=== PATIENT | female | born 1985 | race Caucasian/White ===

== ENCOUNTER 2017-10-05 22:09 | Emergency (ER) | payer MEDICAID, SELFPAY ==
[2017-10-05 22:19] VITALS: BP 118/70; PULSE 96; RESP 18; TEMP 37; O2SAT 99; BMI 26.6
[2017-10-05 22:23] VITALS: BMI 26.6
--- NOTE | 2017-10-05 22:41 | HMH.EDURI ---
ED Disposition Clinical Impression: Bronchitis Disposition: Home, Self-Care Condition on Discharge: Good Additional Instructions: fluids and see pcp for follow up Prescriptions: Azithromycin [Zithromax 250mg tab] 250 mg PO DIRECTED #6 tab Benzonatate [Tessalon Perle 100mg Cap] 100 mg PO TID #30 cap predniSONE [Prednisone 20mg Tab] 20 mg PO DAILY #10 tab Referrals: Kam Gusman MD [Primary Care Provider] - - Critical Care Critical Care Time: No Attestation: On , the high probability of a clinically significant, sudden or life threatening deterioration of the following system(s) required my full and direct attention, intervention and personal management. The time I documented below is in addition to time spent performing reported procedures but includes the following listed in this critical care notation. Medical Decision Making - Medical Records Medical records reviewed: Yes: I reviewed the patient's medical records. Vital Signs: 10/05/17 22:19 Temperature 98.6 F Temperature Source Oral Pulse Rate [Brachial] 96 H Respiratory Rate 18 Blood Pressure [Right Arm] 118/70 Blood Pressure Mean [Right Arm] 86 Blood Pressure Source [Right Arm] Automatic Cuff Blood Pressure Position [Right Arm] Sitting 02 Sat by Pulse Oximetry 99 - Lab Data Lab results reviewed: Yes: I reviewed the patient's lab results. Lab Results 10/05/17 22:30: Influenza Type A Ag Negative, Influenza Type B Ag Negative - Agustín Inquiry Pt receiving controlled substance: No URI/Sore Throat HPI - General Chief Complaint: Upper Respiratory Infection Stated Complaint: KALYN,NAUSA,SOB Time Seen by Provider: 10/05/17 22:41 Mode of Arrival: Ambulatory Source of Information: Patient, Medical Record Limitations: No Limitations Description of Symptoms (Recalled from ER Triage Doc. 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 and uses tob but no rash Complaint: cough Onset (ago): day(s) Duration: intermittent Severity: moderate Relieving factors: OTC cold medicine Description of mucous: clear Able to tolerate fluids by mouth: Yes Associated symptoms: myalgias - Related Data Previous Rx's Medication Instructions Recorded Azithromycin [Zithromax 250mg 250 mg PO DIRECTED #6 tab 01/03/18 tab] Benzonatate [Tessalon Perle 100mg 100 mg PO TID #30 cap 10/05/17 Cap] predniSONE [Prednisone 20mg 20 mg PO DAILY #10 tab 10/05/17 Tab] Allergies Allergy/AdvReac Type Severity Reaction Status Date / Time morphine [MORPHINE] Allergy Intermediate I-HIVES Verified 10/05/17 22:34 promethazine [From PHENERGAN] Allergy Intermediate PARNOID Verified 10/05/17 22:34 [facility] History I have reviewed the patient's past medical history: Yes - *Social History Alcohol Intake: never - Psychiatric History Expresses thoughts of harming self/others: None Suicide Plan Description: No Plan - Constitutional Reports malaise, Denies fever(s) - Eyes Denies discharge - ENT Denies sore throat - Cardiovascular Denies chest pain at rest - Respiratory Reports cough, Reports wheezing - Gastrointestinal Denies abdominal pain - Musculoskeletal Reports joint pain, Denies joint swelling, Denies neck pain - Neurologic Denies seizure-like activity - Psychiatric Denies anxiety Physical Exam - General General appearance: alert, in no apparent distress - Head Head exam: normocephalic - Eye Eye exam: Present: PERRL, EOMI. Absent: scleral icterus - ENT ENT exam: Present: normal oropharynx - Neck Neck exam: Present: full ROM - Respiratory Respiratory exam: Present: normal lung sounds bilaterally. Absent: respiratory distress - Cardiovascular Cardiovascular exam: Present: regular rate - Abdominal Exam Abdominal exam: Present: soft - Extremit
== END 2017-10-06 00:01 | disposition home or self-care (01) ==
PROVIDERS: Emergency Provider Emergency Medicine; PCP Emergency Medicine
DX: J20.9 Acute bronchitis, unspecified (principal); M25.511 Pain in right shoulder; Z88.6 Allergy status to analgesic agent; Z88.8 Allergy status to other drugs, medicaments and biological substances
CPT/HCPCS: 87275; 87276; 99282

== ENCOUNTER → 2017-10-24 15:31 | Outpatient (CLI) | payer MEDICAID, SELFPAY ==
[2017-10-24 16:39] LABS: Basophils % 0.5 % (0.1-2.0); Eosinophils # 0.3 K/mm3 (0.0-0.4); Eosinophils % 3.6 % (0.1-12.0); Hematocrit 38.9 % (37.0-47.0); Lymphocytes # 2.2 K/mm3 (0.7-4.5); Lymphocytes % 30.9 K/mm3 (10-50); Mean Corpuscular HGB Conc 33.5 g/dL (31.8-35.4); Mean Corpuscular Volume 86.6 fl (81-99); Mean Platelet Volume 8.9 fl (7.4-10.4); Monocytes # 0.5 K/mm3 (0.1-1.0); Monocytes % 6.6 % (1.7-9.3); Neutrophils # 4.2 K/mm3 (1.8-7.8); Neutrophils % 58.4 % (37.0-80.0); Platelet Count 211 K/mm3 (142-424); Red Blood Count 4.49 M/mm3 (4.20-5.40); Red Cell Distribution Width 12.7 % (11.5-17.5); White Blood Count 7.2 K/mm3 (4.8-10.8)
[2017-10-27 08:48] LABS: Hepatitis B Surface Antigen Negative (Negative); Hepatitis C Antibody <0.1 s/co ratio (0.0-0.9); Rapid Plasma Reagin Ab Titer Non Reactive (NonRea<1:1); Rubella Antibodies, IgG 1.51 index (Immune >0.99)
== END ==
PROVIDERS: PCP Emergency Medicine; Visit Provider Nurse Practitioner Obstetrics & Gynecology
DX: Z34.90 Encounter for supervision of normal pregnancy, unspecified, unspecified trimester (principal)
CPT/HCPCS: 36415; 85025; 86592; 86762; 86850; 87340; 87380

== ENCOUNTER → 2017-10-31 13:01 | Outpatient (CLI) | payer MEDICAID, SELFPAY ==
--- NOTE | 2017-10-31 13:03 | US_ITS ---
US OB transvaginal Ordering Physician: Earl Monet MD Patient Age: 32 years: Female HISTORY: ITS.REASON: US OB- Dates early OB TECHNIQUE: Transvaginal pelvic ultrasound COMPARISON :None relevant FINDINGS Single viable intrauterine gestation. Early embryo with heart flicker evident Cervix long and closed. . Yolk sac identified. = 5.3 mm Embryo identified = 11 mm = 17 weeks 2 days Heart rate 146 BPM Semilunar included in demonstrating the heart flicker Average ultrasound age = 7 weeks 2 days (Gestational age = 7 weeks 2 days based on LMP 09/10/2017) LESLY based on ultrasound June 17, 2018 Left ovary 2.7 x 1.5 cm. Right ovary 2.4 x 1.5 x 2 cm.. A few small follicles of the right ovary. No dominant cyst in either ovary no fluid in cul-de-sac IMPRESSION Single viable intrauterine gestation [place]-rump length = 7 weeks 2 days IMPRESSION:
== END ==
PROVIDERS: PCP Emergency Medicine; Visit Provider Nurse Practitioner Obstetrics & Gynecology
DX: O26.841 Uterine size-date discrepancy, first trimester (principal)
CPT/HCPCS: 76830

== ENCOUNTER 2017-11-12 15:20 | Emergency (ER) | payer MEDICAID, SELFPAY ==
--- NOTE | 2017-11-12 16:22 | HMH.EDUTC ---
[facility] [place] Disposition Clinical Impression: Cellulitis of external cheek, left Qualifiers: Weeks of gestation: unspecified Qualified Code(s): Z34.90 - Encounter for supervision of normal , unspecified, unspecified trimester Disposition: Home, Self-Care Condition on Discharge: Good Prescriptions: Amoxicillin [Amoxicillin 875MG Tab] 875 mg PO Q12H #20 tab Time of Disposition: 16:36 Medical Decision Making - Medical Records Medical records reviewed: Yes: I reviewed the patient's medical records. - Agustín Inquiry Pt receiving controlled substance: No [facility] [place] HPI - General Stated complaint: Facial Swelling Time Seen by Provider: 11/12/17 16:22 Mode of Arrival: Ambulatory Source of Information: Patient Limitations: No Limitations HEENT Symptoms (Recalled from RN notes): Yes Resp Symptoms (Recalled from RN notes): No Skin Symptoms (Recalled from RN notes): No GI/ Symptoms (Recalled from RN notes): No MS Symptoms (Recalled from RN notes): No Card Symptoms (Recalled from RN notes): No Other (Recalled from RN notes): No - History of Present Illness Provider Complaint: Patient has swelling in left cheek X 2 days. Similar episode a few weeks ago. Does have dental problems - waiting on taxes to get teeth pulled - but no known abscesses. No dental pain. No fever. No nausea, vomiting or diarrhea. Onset (ago): day(s) (2) Location: head, face Relieving factors: none Exacerbating factors: none Associated symptoms: denies other symptoms - Related Data Home Medications Medication Instructions Recorded Confirmed ergocalciferol (vitamin D2) 50,000 50,000 unit PO QWEEK 10/13/17 unit capsule pyridoxine (vitamin B6) 50 mg 50 mg PO ONCE 10/24/17 capsule Previous Rx's Medication Instructions Recorded Amoxicillin [Amoxicillin 875MG Tab] 875 mg PO Q12H #20 tab 11/12/17 Allergies Allergy/AdvReac Type Severity Reaction Status Date / Time morphine [MORPHINE] Allergy Intermediate I-HIVES Verified 10/14/17 08:45 promethazine [From PHENERGAN] Allergy Intermediate PARNOID Verified 10/14/17 08:45 [facility] History I have reviewed the patient's past medical history: Yes Laterality Cases: Bilateral: Other Other Surgeries: Yes: Appendectomy, Amputation: No Fractures: No - *Social History Smoking Status: Current every day smoker Tobacco Type: cigarettes Alcohol Intake: former Alcohol Intake Frequency:: holidays/special occasions only *Family Hx:: No significant family 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 All systems reviewed & no additional complaints - Constitutional Constitutional: Denies fever(s) - Eyes Eyes: Denies blurry vision, Denies eye discharge - ENT Ears, Nose, Mouth, and Throat: Reports as per HPI, Denies dental pain, Denies facial pain, Reports sinus pain, Denies sore throat Physical Exam - General General appearance: alert, in no apparent distress - Head Head exam: atraumatic, normocephalic, normal inspection - Eye Eye exam: Present: normal appearance, PERRL, EOMI - ENT ENT exam: Present: normal exam, normal oropharynx, mucous membranes moist, TM's normal bilaterally, normal external ear exam - Expanded ENT Exam Nose exam: Present: other (swelling left maxillary sinus/cheek) - Neck Neck exam: Present: normal inspection, full ROM, trachea midline. Absent: meningismus, lymphadenopathy - Chest Chest inspection: Present: normal inspection, symmetric chest wall rise. Absent: tenderness - Respiratory Respiratory exam: Present: normal lung sounds bilaterally. Absent: respiratory distress - Cardiovascular Cardiovascular exam: Present: regular rate, normal rhythm. Absent: JVD - Abdominal Exam Abdominal exam: Present: soft, normal bowel sounds. Absent: distention, tenderness, guarding - Extremities Exam Extremities exam: Present: normal inspection, full ROM, normal capillary refill. Absent: calf tenderness - Back Ex
--- NOTE | 2017-11-12 16:27 | ED_ITS ---
[facility] [place] Disposition Clinical Impression: Cellulitis of external cheek, left Qualifiers: Weeks of gestation: unspecified Qualified Code(s): Z34.90 - Encounter for supervision of normal , unspecified, unspecified trimester Disposition: Home, Self-Care Condition on Discharge: Good Prescriptions: Amoxicillin [Amoxicillin 875MG Tab] 875 mg PO Q12H #20 tab Time of Disposition: 16:36 Medical Decision Making - Medical Records Medical records reviewed: Yes: I reviewed the patient's medical records. - Agustín Inquiry Pt receiving controlled substance: No [facility] [place] HPI - General Stated complaint: Facial Swelling Time Seen by Provider: 11/12/17 16:22 Mode of Arrival: Ambulatory Source of Information: Patient Limitations: No Limitations HEENT Symptoms (Recalled from RN notes): Yes Resp Symptoms (Recalled from RN notes): No Skin Symptoms (Recalled from RN notes): No GI/ Symptoms (Recalled from RN notes): No MS Symptoms (Recalled from RN notes): No Card Symptoms (Recalled from RN notes): No Other (Recalled from RN notes): No - History of Present Illness Provider Complaint: Patient has swelling in left cheek X 2 days. Similar episode a few weeks ago. Does have dental problems - waiting on taxes to get teeth pulled - but no known abscesses. No dental pain. No fever. No nausea, vomiting or diarrhea. Onset (ago): day(s) (2) Location: head, face Relieving factors: none Exacerbating factors: none Associated symptoms: denies other symptoms - Related Data Home Medications Medication Instructions Recorded Confirmed ergocalciferol (vitamin D2) 50,000 50,000 unit PO QWEEK 10/13/17 unit capsule pyridoxine (vitamin B6) 50 mg 50 mg PO ONCE 10/24/17 capsule Previous Rx's Medication Instructions Recorded Amoxicillin [Amoxicillin 875MG Tab] 875 mg PO Q12H #20 tab 11/12/17 Allergies Allergy/AdvReac Type Severity Reaction Status Date / Time morphine [MORPHINE] Allergy Intermediate I-HIVES Verified 10/14/17 08:45 promethazine [From PHENERGAN] Allergy Intermediate PARNOID Verified 10/14/17 08: 45 [facility] History I have reviewed the patient's past medical history: Yes Laterality Cases: Bilateral: Other Other Surgeries: Yes: Appendectomy, Amputation: No Fractures: No - *Social History Smoking Status: Current every day smoker Tobacco Type: cigarettes Alcohol Intake: former Alcohol Intake Frequency:: holidays/special occasions only *Family Hx:: No significant family 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 All systems reviewed & no additional complaints - Constitutional Constitutional: Denies fever(s) - Eyes Eyes: Denies blurry vision, Denies eye discharge - ENT Ears, Nose, Mouth, and Throat: Reports as per HPI, Denies dental pain, Denies facial pain, Reports sinus pain, Denies sore throat Physical Exam - General General appearance: alert, in no apparent distress - Head Head exam: atraumatic, normocephalic, normal inspection - Eye Eye exam: Present: normal appearance, PERRL, EOMI - ENT ENT exam: Present: normal exam, normal oropharynx, mucous membranes moist, TM's normal bilaterally, normal external ear exam - Expanded ENT Exam Nose exam: Present: other (swelling left maxillary sinus/cheek) - Neck Neck exam: Present: normal inspection, full ROM, trachea midline. Absent: men
[2017-11-12 16:37] VITALS: BP 124/73; PULSE 83; RESP 20; TEMP 36.6; O2SAT 98; BMI 26.4
[2017-11-12 17:11] VITALS: BP 124/73; PULSE 83; RESP 20; TEMP 36.6; O2SAT 98
== END 2017-11-12 17:13 | disposition home or self-care (01) ==
PROVIDERS: Emergency Provider Physician Assistant
DX: L03.211 Cellulitis of face (principal); Z34.90 Encounter for supervision of normal pregnancy, unspecified, unspecified trimester; Z88.6 Allergy status to analgesic agent; Z88.8 Allergy status to other drugs, medicaments and biological substances
CPT/HCPCS: 99202

== ENCOUNTER → 2018-01-24 13:09 | Outpatient (CLI) | payer MEDICAID, SELFPAY ==
--- NOTE | 2018-01-24 13:11 | US_ITS ---
US OB /maternal detail: INDICATION: ITS.REASON: US OB Complete ORDERING PHYSICIAN: Earl Monet MD PATIENT AGE: 32 years TECHNIQUE: ultrasound transabdominal scanning. COMPARISON: No previous relevant studies. FINDINGS: Single viable intrauterine gestation. Cephalic position at the end of the exam position. Placenta: Anterior . There is average amount fluid. The cervix appears satisfactory. Closed and measuring 4 cm in length. Complete survey performed and was unremarkable on the submitted images as in PACS. No discrete anomalies identified on survey imaging by technologist. Active fetus. Three-vessel cord with satisfactory umbilical cord insertion. 4- chamber heart noted. There is an echogenic intracardiac focus within the ventricle which is nonspecific. Unremarkable Survey of brain & ventricles. Face and neck survey unremarkable. Diaphragm and chest views unremarkable. Abdomen: Both kidneys noted and unremarkable. Stomach noted and satisfactory. Spine: Survey of the spine satisfactory with no anomalies identified nor imaged. Both arms and legs noted. Amniotic Fluid: Adequate. Maternal adnexa: No significant findings. Measurements: Average ultrasound age 19w6d. Gestational Age 19w3d. Estimated due date by ultrasound age 0906/14/2018. This is 75th percentile Estimated weight 322 grams. BPD = 19w6d OFD = 20w1d HC = 19w2d AC = 20w1d FL = 20w0d Heart Rate = 150 bpm Cerebellum = 19w2d Humerus = 20w4d HC/AC is 1.11 (1.09-1.26). CI is 78% (70-86%). FL/BPD is 70%. FL/AC is 22%. IMPRESSION: Live intrauterine gestation with an average ultrasound age of 19 weeks 6 days. heart and body motion noted. All parameters correlate. There is a nonspecific echogenic intracardiac focus. This is classified as a soft marker for a aneuplodic anomalies in patients with a high risk Otherwise unremarkable anatomy exam.
== END ==
PROVIDERS: PCP Emergency Medicine; Visit Provider Nurse Practitioner Obstetrics & Gynecology
DX: Z36.0 Encounter for antenatal screening for chromosomal anomalies (principal)
CPT/HCPCS: 76811

== ENCOUNTER 2018-04-07 16:11 | Outpatient (CLI) | payer MEDICAID, SELFPAY ==
[2018-04-07 16:20] VITALS: BP 99/62; PULSE 94; RESP 18; TEMP 36.6; O2SAT 97; BMI 27.3
[2018-04-07 16:23] VITALS: BMI 27.3
== END 2018-04-07 17:04 | disposition home or self-care (01) ==
LOC: OBOUT 16:16 → OB 16:17
PROVIDERS: PCP Obstetrics & Gynecology; Visit Provider Obstetrics & Gynecology
DX: O26.893 Other specified pregnancy related conditions, third trimester (principal); Z3A.29 29 weeks gestation of pregnancy; R10.2 Pelvic and perineal pain
CPT/HCPCS: 59025

== ENCOUNTER → 2018-04-13 19:18 | Outpatient (REF) | payer MEDICAID, SELFPAY | LOC: LAB 19:18 | PROVIDERS: Visit Provider Nurse Practitioner Obstetrics & Gynecology | DX: Z34.90 Encounter for supervision of normal pregnancy, unspecified, unspecified trimester (principal) | CPT/HCPCS: 87086; 87088; 87186 ==

== ENCOUNTER → 2018-05-10 17:05 | Outpatient (REF) | payer MEDICAID, SELFPAY | LOC: LAB 17:05 | PROVIDERS: Visit Provider Nurse Practitioner Obstetrics & Gynecology | DX: Z34.90 Encounter for supervision of normal pregnancy, unspecified, unspecified trimester (principal) | CPT/HCPCS: 87086 ==

== ENCOUNTER → 2018-05-19 12:58 | Outpatient (CLI) | payer MEDICAID, SELFPAY ==
--- NOTE | 2018-05-19 | US_ITS ---
US OB biophysical profile, US OB follow up, US SD Ratio umbilcal artery: Indication: Evaluate growth, small for gestational age ITS.REASON: US OB- BPP Growth- SGA ORDERING PHYSICIAN: Earl Monet MD PATIENT AGE: 32 years FINDINGS: Single live fetus is present in the cephalic presentation. The placenta is anterior and grade 1-2. breathing movement noted. The following parameters are obtained: Average ultrasound age is 36w2d. Estimated due date by ultrasound is 06/14/2018. Estimated weight is 2925. This is 66 percentile based on established due date of 06/17/2018. BPD: 36w0d OFD: 39w5d HC: 36w3d AC: 35w6d FL: 35w6d heart rate: 146 bpm. HC/AC: 0.98(0.93-1.11) Cephalic index: 77% (70-86%) FL/BPD: 79% (71-87% FL/AC: 21% (20-24%) Amniotic fluid index: 6 cm Qualitative AFV: 2 breathing movements: 2 Gross body movements: 2 Tone: 2 Biophysical profile score: 8/8 Doppler evaluation of the umbilical artery: SD ratio: 2.2 Resistive index: 0.5 No obvious anomalies evident. Placenta: Anterior Grade 1 - 2. Cervix: Appears closed and measures 4 cm IMPRESSION: There is a single live fetus present in cephalic presentation with an average ultrasound age of 36 weeks 2 days. Estimated weight is 2925 g which is 66 percentile based on established due date of 06/17/2018. Fetus is active with no obvious anomalies. Biophysical profile is 8 of 8. Amniotic fluid volume is low and DELFINO of 6 cm. Umbilical artery evaluation is unremarkable with an SD ratio of 2.2 and resistive index of 0.55
== END ==
PROVIDERS: PCP Emergency Medicine; Visit Provider Nurse Practitioner Obstetrics & Gynecology
DX: O36.5131 Maternal care for known or suspected placental insufficiency, third trimester, fetus 1 (principal)
CPT/HCPCS: 76816; 76819; 76820

== ENCOUNTER → 2018-05-24 18:05 | Outpatient (REF) | payer MEDICAID, SELFPAY | LOC: LAB 18:05 | PROVIDERS: Visit Provider Nurse Practitioner Obstetrics & Gynecology | DX: Z34.90 Encounter for supervision of normal pregnancy, unspecified, unspecified trimester (principal) | CPT/HCPCS: 86403 ==

== ENCOUNTER 2018-06-02 16:16 | Outpatient (CLI) | payer MEDICAID, SELFPAY ==
[2018-06-02 16:40] VITALS: BMI 28.1
[2018-06-02 16:48] VITALS: BP 106/62; PULSE 108; RESP 20; TEMP 36.7; O2SAT 98; BMI 28.1
[2018-06-02 16:53] LABS: Microscopic, Urine URINE MICROSCOPIC (MICROSCOPIC)
[2018-06-02 16:54] LABS: Appearance,Urine CLEAR (Clear); Blood, Urine Negative (Negative); Color,Urine DK YELLOW (Yellow); Glucose,Urine (UA) Negative (Negative); Ketones,Urine Negative (Negative); Leukocyte Esterase,Urine Negative (Negative); Nitrate,Urine Negative (Negative); PH,Urine 6.5 (5.0-8.5); Protein,Urine Negative (Negative)
[2018-06-02 17:05] LABS: Bilirubin,Urine Negative (Negative)
[2018-06-02 17:18] LABS: Bacteria,Urine Trace /lpf; WBC,Urine Occasional #/hpf (0-3)
[2018-06-02 17:19] LABS: Mucus,Urine Trace /lpf
== END 2018-06-02 17:25 | disposition home or self-care (01) ==
LOC: OBOUT 16:18 → OB 16:21
PROVIDERS: PCP Emergency Medicine; Referring Provider Obstetrics & Gynecology; Visit Provider Obstetrics & Gynecology
DX: O47.03 False labor before 37 completed weeks of gestation, third trimester (principal); Z3A.37 37 weeks gestation of pregnancy
CPT/HCPCS: 59025; 81001

== ENCOUNTER 2018-06-12 05:40 | Inpatient (IN) ==
[2018-06-12 06:12] LABS: Basophils % 0.4 % (0.1-2.0); Eosinophils # 0.1 K/mm3 (0.0-0.4); Eosinophils % 1.1 % (0.1-12.0); Hematocrit 33.7 % (37.0-47.0); Hemoglobin 11.1 g/dL (12.2-16.2); Lymphocytes # 2.5 K/mm3 (0.7-4.5); Lymphocytes % 24.4 K/mm3 (10-50); Mean Corpuscular Hemoglobin 26.4 pg (27.0-31.2); Mean Corpuscular Volume 80.1 fl (81-99); Mean Platelet Volume 8.6 fl (7.4-10.4); Monocytes # 0.6 K/mm3 (0.1-1.0); Monocytes % 5.8 % (1.7-9.3); Neutrophils % 68.3 % (37.0-80.0); Platelet Count 356 K/mm3 (142-424); Red Cell Distribution Width 15.2 % (11.5-17.5); White Blood Count 10.2 K/mm3 (4.8-10.8)
[2018-06-12 06:15] LABS: Anion Gap 12.8 mEq/L (5-15); Calcium 8.6 mg/dL (8.5-10.1); Potassium 3.8 mmoL/L (3.5-5.1)
--- NOTE | 2018-06-12 07:27 | Progress Note ---
[facility] Anesthesia Checklist - Patient Identification Patient Identification: Arm Band, Verbal (Name & ) - Structural Data Admitted From: Home Planned Operative Procedure/s: c section Consent for Planned Operative Procedure(s) Verified: Yes Verified Documents: Surgical Consent, History and Physical - NPO Status Verified Time NPO: 00:00 - Additional verifications Patient : No Anesthesia Reactions: No Hx Blood Transfusions: No Blood Transfusion Reaction: No Cephalosporin Allergy: No Previous Colonoscopy: No - Cardiovascular Assessment Heart Sounds: S1 & S2 Pulse Strength: Baseline Pulse Rhythm: Regular Peripheral Edema: No - Airway Assessment C-Spine Mobility Assessed: Yes TMJ Mobility Assessed: Yes Dentition: Poor Dentition - Neurological Assessment Level of Consciousness: Awake, Alert, Appropriate Hx Seizures: Yes Numbness or tingling in extremities: No [facility] History I have reviewed the patient's past medical history: Yes Medical History: Reports:: Gastroesophageal Reflux Disease(GERD) Denies:: Anxiety, Asthma, Cancer, Chronic Obstructive Pulmonary Disease (COPD), Diabetes Mellitus Type 1, Diabetes Mellitus Type 2, Hypertension, MRSA Laterality Cases: Bilateral: Other Other Surgeries: Yes: Appendectomy, Cholecystectomy, , Dilation and Curettage Amputation: No Fractures: No - *Social History Educational Level: Completed High School Smoking Status: Current every day smoker Tobacco Type: cigarettes Alcohol Intake: never Alcohol Intake Frequency:: holidays/special occasions only Substance Use Type: denies use Occupational Status: unemployed Housing: house Household Members: spouse, children - Psychiatric History Expresses thoughts of harming self/others: None Suicide Plan Description: No Plan Pschychiatric History:: Denies:: Anxiety *Family Hx:: No significant family history 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
--- NOTE | 2018-06-12 08:47 | Operative Note ---
Date of procedure: 06/12/18 Pre-op Diagnosis:: Term , previous section, desire for sterilization Post-op Diagnosis:: Term , previous section, desire for sterilization Procedure performed:: Repeat lower segment transverse section and bilateral salpingectomy Surgeon:: Earl Monet MD Environmental Quality Analyst(s):: Claribel Browne BENCH CARPENTER:: Yong Heredia Anesthesia: spinal Estimated blood loss (mL): 600 Clinical Note:: She is a 32-year-old 6 para 3 aborta 2 who was 39+ weeks gestational age. She has had 3 previous sections and as result of that was offered repeat lower segment transverse section. She also expressed desire for sterilization. The risks and benefits as well as irreversibility of tubal ligation were discussed with the patient prior to surgery. Operative findings:: She delivered a liveborn male child at 7:59 AM on the morning of June 12, 2018. The baby had Apgars of 8 at 1 minute and 9 at 5 minutes. Ovaries and tubes appeared normal. PH 7.33. There was a nuchal cord 3. Operative note:: She was taken to the operating room where spinal anesthesia was found be adequate. She was prepped and draped in normal sterile fashion in the supine position with a leftward tilt. A Lord catheter was in the bladder. A Pfannenstiel skin incision was made with knife then carried through to the underlying layer of fascia with cautery. The fascia was opened in the midline with cautery and extended laterally using Knowles scissors. Jeimy clamps were applied to the superior aspect of the fascial incision which was tented up and the underlying rectus muscles dissected off using cautery. The Jeimy clamps were then applied to the inferior aspect of the fascial incision which in a similar fashion was tented up and the underlying rectus muscles dissected off using cautery. The rectus muscles were then in the midline, the peritoneum identified, and entered sharply with Metzenbaum scissors. This incision was then extended superiorly and inferiorly with cautery. We had good visualization of the bladder inferiorly. The lower blade of the Rigby was inserted. The bladder peritoneum was quite low so I elected not to open the bladder peritoneum. Transverse incision was made through the uterine muscle to the amnion. This incision was then extended laterally using fingers traction. The amnion was entered sharply with knife. The 's head was then delivered atraumatically. I reduced a nuchal cord 3 that was quite loose. This was followed by the anterior shoulder and the rest of the 's body atraumatically. The oropharynx and nasopharynx were bulb suctioned. The infant was then handed off to Dr. Weldon who assigned Apgars of 8 at 1 minute and 9 at 5 minutes. We then obtained cord blood as well as cord pH. The pH was 7.33. Using gentle traction on the cord and countertraction on the fundus I was able to easily deliver the placenta intact. It had a normal three-vessel cord. The uterus was then cleared of clots and debris and exteriorized from the abdominal cavity. The uterine incision was then closed using running 0 Vicryl suture in a locked fashion. A second layer of the same suture was used to imbricate the first layer. The bladder peritoneum was then closed using running 2-0 Vicryl suture in a locked fashion. I then grasped the distal end of the right tube and using cautery along the mesosalpinx I cauterized the mesosalpinx dissecting the tube away. At the proximal end of the tube I then cauterized across the tube. There is a small amount of bleeding and I elected to place a single Vicryl suture here. This was similar performed on the patient's left side. The gutters and cul-de-sac were then cleared of clots and debris and the uterus was returned the abdominal cavity. Once again hemostasis was assured. I elected to place a large piece of Surgicel along the uterine incision. The peritoneum was grasped with Pallavi clamps and closed using running 2-0 Vicryl suture. The rectus muscles were then reapproximated using running 0 Vicryl suture. The fascia was closed using running #1 Vicryl suture. The subcutaneous tissues were then irrigated with warm water followed by closure Yajaira's fascia using running 2-0 Monocryl suture. The skin was closed with kyleigh. The skin was then cleaned with Hibiclens. Sterile dressings were applied. She tolerated the procedure well and was taken to the recovery room in excellent condition. All sponges minute and needle counts were correct. Estimate a blood loss was approximately 600 mL. Condition: stable Disposition: PACU Specimens:: Bilateral fallopian tubes Complications:: None
--- NOTE | 2018-06-12 08:48 | Progress Note ---
[facility] Anesthesia Record Part I Intake, IV Amount: 3,000 Estimated blood loss (mL): 600 Urine output (mL): 300 Blood Products used (#): none Blood Pressure: 116/60 SaO2: 98 Pulse Rate: 73 Respiratory Rate: 20 Temperature: 97.8 F Patient is:: Awake, Stable Stable to PACU at:: 08:47
--- NOTE | 2018-06-12 08:49 | Progress Note ---
[facility] Anesthesia Record Part II Discharge Time: 09:17 Destination: Obstetric PACU nurse assessment reviewed?: Yes Patient Condition:: Good Anesthesia Complications:: None
--- NOTE | 2018-06-12 11:07 | Pharmacy Consult Notes ---
[facility] Pharmacy VTE Monitoring - Patient Demographics Admission date: 06/12/18 Report Date: 06/12/18 Time: 11:07 Allergies/Adverse Reactions: Patient Allergies morphine [MORPHINE] Allergy (Intermediate, Verified 06/06/18 16:39) I-HIVES promethazine [From PHENERGAN] Allergy (Intermediate, Verified 06/12/18 10:49) PARANOID Height: 1.65 m Weight: 78.018 kg - VTE Risk Labs: VTE Related Lab Results Hgb 11.1 g/dL (12.2-16.2) L 06/12/18 06:00 Hct 33.7 % (37.0-47.0) L 06/12/18 06:00 Plt Count 356 K/mm3 (142-424) 06/12/18 06:00 BUN 6 mg/dL (7-18) L 06/12/18 06:00 Creatinine 0.44 mg/dL (0.55-1.02) L 06/12/18 06:00 Estimated Creat Clear 224 mL/min (0-300) 06/12/18 06:00 - Prophylaxis VTE Prophylaxis Ordered?: Yes Types of VTE Prophylaxis: IPCS Thigh High Location of Applied Device: Bilateral Lower Extremeties - VTE Diagnosis Confirmed Treatment or plan recommended: Continue Current Treatment
[2018-06-12 16:04] LABS: Hematocrit 32.7 % (37.0-47.0); Hemoglobin 10.7 g/dL (12.2-16.2)
[2018-06-13 07:03] LABS: Basophils % 0.2 % (0.1-2.0); Eosinophils # 0.3 K/mm3 (0.0-0.4); Eosinophils % 1.7 % (0.1-12.0); Hematocrit 30.5 % (37.0-47.0); Hemoglobin 9.9 g/dL (12.2-16.2); Lymphocytes # 1.1 K/mm3 (0.7-4.5); Lymphocytes % 7.8 K/mm3 (10-50); Mean Corpuscular HGB Conc 32.3 g/dL (31.8-35.4); Mean Corpuscular Hemoglobin 26.2 pg (27.0-31.2); Mean Corpuscular Volume 81.2 fl (81-99); Mean Platelet Volume 8.6 fl (7.4-10.4); Monocytes # 0.8 K/mm3 (0.1-1.0); Monocytes % 5.6 % (1.7-9.3); Neutrophils # 12.3 K/mm3 (1.8-7.8); Neutrophils % 84.7 % (37.0-80.0); Platelet Count 301 K/mm3 (142-424); Red Blood Count 3.76 M/mm3 (4.20-5.40); Red Cell Distribution Width 15.5 % (11.5-17.5); White Blood Count 14.5 K/mm3 (4.8-10.8)
--- NOTE | 2018-06-13 08:24 | Progress Note ---
Internal Medicine - PN: Subj *Date: 06/13/18 *Time: 08:23 Interval history: She is doing well this morning. She is eating and drinking and ambulating. She is breast-feeding and bottlefeeding. Her pain is reasonably well controlled. Exam Vital signs and Labs for Last 24 Hours: Temp Pulse Resp BP Pulse Ox 97.8 F 84 18 115/69 98 06/13/18 07:38 06/13/18 07:38 06/13/18 07:38 06/13/18 07:38 06/13/18 07:38 Laboratory Results - last 24 hr 06/12/18 07:50: Urine Color Yellow, Urine Appearance Clear, Urine pH 7.0, Ur Specific [place] 1.010, Urine Protein Negative, Urine Glucose (UA) Negative, Urine Ketones Negative, Urine Blood Negative, Urine Nitrate Negative, Urine Bilirubin Negative, Urine Urobilinogen 0.2, Ur Leukocyte Esterase Negative, Urine RBC None, Urine WBC Occasional, Ur Squamous Epith Cells 3-5, Urine Bacteria Trace 06/12/18 15:57: Hgb 10.7 L, Hct 32.7 L 06/13/18 06:37: WBC 14.5 H D, RBC 3.76 L, Hgb 9.9 L, Hct 30.5 L, MCV 81.2, MCH 26.2 L, MCHC 32.3, RDW 15.5, Plt Count 301, MPV 8.6, Neut % (Auto) 84.7 H, Lymph % (Auto) 7.8 L, [place] % (Auto) 5.6, Eos % (Auto) 1.7, Baso % (Auto) 0.2, Neut # (Auto) 12.3 H, Lymph # (Auto) 1.1, [place] # (Auto) 0.8, Eos # (Auto) 0.3, Baso # (Auto) 0.0 I & O for Last 24 hours: Intake & Output 06/10/18 06/11/18 06/12/18 06/13/18 11:59 11:59 11:59 11:59 Intake Total 3000 / 3000 Balance 3000 / 3000 Weight 172 lb - Constitutional no acute distress - *Routine HEENT Exam Head: Present: normocephalic Eye: Present: EOMI, PERRL ENT: Present: mucous membranes moist Assessment and Plan (1) Previous section Current visit: Yes Status: Acute Category: Surgical Code(s): Z98.891 - History of uterine scar from previous surgery - Assessment and plan all Dx Assessment and Plan for all problems:: She is doing well this morning. We will plan to send her home in 48 hours.
--- NOTE | 2018-06-14 10:59 | Progress Note ---
Internal Medicine - PN: Subj *Date: 06/14/18 (n) *Time: 10:58 Interval history: She continues to do well this morning. She is eating and drinking and ambulating. She is breast-feeding. Her lochia is normal. Her incision is clean and dry. Exam Vital signs and Labs for Last 24 Hours: Temp Pulse Resp BP Pulse Ox 98.5 F 70 18 102/57 99 06/13/18 19:31 06/13/18 19:31 06/13/18 19:31 06/13/18 19:31 06/13/18 19:31 I & O for Last 24 hours: Intake & Output 06/11/18 06/12/18 06/13/18 06/14/18 11:59 11:59 11:59 11:59 Intake Total 3000 / 3000 Balance 3000 / 3000 Weight 172 lb - Constitutional no acute distress Assessment and Plan (1) Previous section Current visit: Yes Status: Acute Category: Surgical Code(s): Z98.891 - History of uterine scar from previous surgery - Assessment and plan all Dx Assessment and Plan for all problems:: She is doing very well. We will plan to send her home tomorrow.
--- NOTE | 2018-06-16 08:29 | Discharge Summary ---
General - General Admission date:: 06/12/18 Discharge date: 06/15/18 HPI HPI: She is a 32-year-old 6 para 4 aborta 2 who is 39+ weeks gestational age. She has had previous sections and as a result of that was repeat lower segment transverse section at term. She also expressed desire for sterilization and had a bilateral synovectomy. Hospital Course Hospital Course: On June 12, 2018 she delivered a liveborn male child by section. She had a bilateral salpingectomy at that time as well. She has done well postoperatively and has remained afebrile throughout her ho spitalization. She is eating and drinking and ambulating. She is feeding. She has O+ blood, she is rubella immune and was group B Streptococcus negative. She is discharged home to follow-up with me in approximately 2 weeks time. She will continue with her vitamins and iron. She was given a prescription for Percocet 5/325, 30 tablets. Objective Vital signs: Temp Pulse Resp BP Pulse Ox 98.5 F 70 18 102/57 99 06/13/18 19:31 06/13/18 19:31 06/13/18 19:31 06/13/18 19:31 06/13/18 19:31 no acute distress DS: Diagnosis - Discharge Diagnosis (1) Previous section Status: Acute Discharge Plan - Patient Discharge Instructions ACTIVITY: No heavy lifting DIET: continue same diet - Follow up Plan Disposition: Home, Self-Fdc Medications: Home Medications Medication Instructions Recorded Confirmed Type 1 tab PO HS 11/23/17 06/12/18 History vitamin,calcium,anjtyfpo-mhew-tdcgv acid tablet Ferrous Sulfate 325 mg PO DAILY 06/12/18 06/12/18 History Prescriptions/Medication Reconciliation: New Oxycodone HCl/Acetaminophen [Percocet 5/325mg tablet] 1 - 2 tab PO Q4-6H PRN #30 tab PRN Reason: Severe Pain Continue vitamin,calcium,mbplxtuf-nfqf-jqwge acid tablet 1 tab PO HS Ferrous Sulfate 325 mg PO DAILY
== END 2018-06-15 10:39 | disposition home or self-care (01) ==
LOC: OB 05:40
PROVIDERS: ADMIT Nurse Practitioner Obstetrics & Gynecology; ATTEND Nurse Practitioner Obstetrics & Gynecology

== ENCOUNTER 2020-08-15 13:21 | Emergency (ER) | payer OTHER, SELFPAY ==
[2020-08-15 13:28] VITALS: BP 114/73; PULSE 88; RESP 16; TEMP 36.8; O2SAT 98; BMI 27.4
[2020-08-15 14:14] VITALS: BP 114/73; PULSE 88; RESP 16; TEMP 36.8; O2SAT 98; BMI 27.4
--- NOTE | 2020-08-15 14:29 | HMH.EDUTC ---
[facility] Disposition Clinical Impression: Low back pain Qualifiers: Chronicity: unspecified Back pain laterality: right Sciatica presence: with sciatica Sciatica laterality: sciatica of right side Qualified Code(s): M54.41 - Lumbago with sciatica, right side Sciatica Qualifiers: Laterality: right Qualified Code(s): M54.31 - Sciatica, right side Disposition: Home, Self-Care Condition on Discharge: Good Instructions: DI for Low Back Pain, DI for Sciatica Additional Instructions: Go home and rest. It would be best if you rested tomorrow too. No heavy lifting. No twisting. Take the oral medications as directed. The muscle relaxer (robaxin) will make you drowsy, so don't drive or operate heavy machinery after taking it. Don't start the oral steroids (medrol dose pack) until tomorrow, since you had the shots in here today. Follow up with your regular doctor. GO TO THE ER FOR ANY WORSENING SYMPTOMS OR CONCERN, ESPECIALLY BOWEL OR BLADDER ISSUES, SADDLE AREA NUMBNESS, FEVER, ETC Prescriptions: methylPREDNISolone [Medrol] 4 mg PO DIRECTED 6 Days #21 tab.ds.pk Transmission Status: Received by [facility] Methocarbamol [Robaxin 500mg Tab] 500 mg PO BIDP PRN #30 tab PRN Reason: Muscle Spasm Transmission Status: Received by [facility] Referrals: Kam Gusman MD [Primary Care Provider] - Forms: Work/School Release Time of Disposition: 15:28 Medical Decision Making - Medical Records Medical records reviewed: No: I reviewed the patient's medical records. - Agustín Inquiry Pt receiving controlled substance: No Vital Signs: 08/15/20 13:28 08/15/20 14:14 08/15/20 15:38 Temperature 98.2 F 98.2 F 98.2 F Temperature Source Oral Oral Oral Pulse Rate 88 Pulse Rate [Right Brachial] 88 88 Respiratory Rate 16 16 16 Blood Pressure 114/73 Blood Pressure [Right Arm] 114/73 114/73 Blood Pressure Mean [Right Arm] 86 86 Blood Pressure Source Automatic Cuff Blood Pressure Source [Right Arm] Automatic Cuff Automatic Cuff Blood Pressure Position Sitting Blood Pressure Position [Right Arm] Sitting Sitting 02 Sat by Pulse Oximetry 98 98 Oxygen Delivery Method Room Air Room Air Room Air Orders (Tests/Meds): ED MEDICATIONS Discontinued Medications Generic Name Dose Route Start Last Admin Trade Name Dionna PRN Reason Stop Dose Admin Ketorolac Tromethamine 60 mg 08/15/20 15:13 08/15/20 15:19 Ketorolac 60mg/2ml Vial IM 08/15/20 15:14 60 mg ONCE ONE Administration Methylprednisolone Sodium Succinate 125 mg 08/15/20 15:13 08/15/20 15:19 Methylprednisolone Sod Succ 125mg Vial IM 08/15/20 15:14 125 mg ONCE ONE Administration - Radiology Data #1 Image(s): L-Spine Image Reviewed: Yes I reviewed the patient's radiology image, Yes I have reviewed radiologist's interpretation Preliminary Findings: Normal/NAD PROCEDURE: XR LUMBAR SPINE 2-3V CLINICAL INDICATION: low back pain with sciatica COMPARISON: No exams were available for comparison FINDINGS: No fracture or dislocation. No lytic or blastic change. There is normal mineralization. There is degenerative disc disease at L5-S1. There is straightening of the lumbar lordosis. There is anterior angulation of the lower sacrum smooth in nature consistent with an old fracture. IMPRESSION: 1. Degenerative disc disease L5-S1 with straightening of lumbar lordosis. 2. Old lower sacral fracture Dictated by: Armando Goodman MD 08/15/2020 15:14 Armando Goodman MD in [place] 08/15/2020 15:14 [facility] HPI - General Stated complaint: low back pain running down leg Time Seen by Provider: 08/15/20 14:29 Mode of Arrival: Ambulatory Source of Information: Patient Limitations: No Limitations Description of Symptoms (Recalled from Triage Doc. by RN): Patient reports lower back pain x1 week that shoots down her right leg. Patient reports she has had lower back pain since she was . WILLY S
[2020-08-15 15:38] VITALS: BP 114/73; PULSE 88; RESP 16; TEMP 36.8; O2SAT 98
== END 2020-08-15 15:39 | disposition home or self-care (01) ==
LOC: ER 13:29 → UTC 13:30
PROVIDERS: Emergency Provider Nurse Practitioner Family; PCP Emergency Medicine
DX: M54.41 Lumbago with sciatica, right side (principal); K21.9 Gastro-esophageal reflux disease without esophagitis; F17.210 Nicotine dependence, cigarettes, uncomplicated; Z88.5 Allergy status to narcotic agent
CPT/HCPCS: 72100; 99201

== ENCOUNTER → 2020-09-04 13:58 | Outpatient (CLI) | payer OTHER, SELFPAY ==
--- NOTE | 2020-09-04 13:58 | MR_ITS ---
PROCEDURE: MR LUMBAR SPINE WO CON CLINICAL INDICATION: back pain WALKING AND HAS LBP. RT SIDED WORSE THAN LEFT. INTERMITTENT RT LEG PAIN, NUMBNESS, AND TINGLING. NO INJURY. PRIOR X-RAY 08-15-20 COMPARISON: CR XR LUMBAR SPINE 2-3V from 08/15/2020 TECHNIQUE: Standard multiplanar multiecho sequences are performed without contrast. 3-D MIP and myelographic images are also rendered and reviewed FINDINGS: There is straightening of the lumbar lordosis. There is normal alignment. The spinal cord ends at the L2 level. L1-L2: Unremarkable. L2-L3: Unremarkable. L3-L4: Mild facet and ligamentum hypertrophy. L4-5: Mild bulging disc with facet and ligamentum hypertrophy with mild bilateral foraminal narrowing. L5-S1: Degenerative disc disease with type 1 endplate changes. There is mild retrolisthesis of L5 by approximately 4 mm. There is concentric bulging disc with a small central disc protrusion. There is facet and ligamentum hypertrophy with moderate to severe bilateral foraminal narrowing and bilateral lateral recess narrowing. No extruded herniated disc is evident. IMPRESSION: 1. L4-5: Mild bulging disc with facet and ligamentum hypertrophy with mild bilateral foraminal narrowing. 2. L5-S1: Degenerative disc disease with type 1 endplate changes. There is mild retrolisthesis of L5 by approximately 4 mm. There is concentric bulging disc with a small central disc protrusion. There is facet and ligamentum hypertrophy with moderate to severe bilateral foraminal narrowing and bilateral lateral recess narrowing. 3. No extruded herniated disc is evident. Dictated by: Armando Goodman MD 09/06/2020 21:39 Armando Goodman MD in [place] 09/06/2020 21:39
== END ==
PROVIDERS: PCP Emergency Medicine; Visit Provider Emergency Medicine
DX: M54.5 Low back pain (principal)
CPT/HCPCS: 72148; 76376

== ENCOUNTER → 2020-09-23 10:55 | Outpatient (CLI) | payer OTHER, SELFPAY ==
--- NOTE | 2020-09-23 11:00 | XR_ITS ---
PROCEDURE: XR CHEST 2V CLINICAL HISTORY: + TB SKIN TEST Smoker COMPARISON: CT CTAC CTA-CHEST from 04/26/2014 CR CXR CHEST(2 VIEWS-NOT PORTABLE) from 04/30/2016 FINDINGS: The cardiomediastinal silhouette and pulmonary vascularity are within normal limits. The lungs are clear without infiltrates, suspicious nodules, or pleural effusions. No acute bony abnormalities. IMPRESSION: No acute findings. Dictated by: Armando Goodman MD 09/23/2020 16:19 Amrando Goodman MD in [place] 09/23/2020 16:19
== END ==
PROVIDERS: PCP Emergency Medicine; Visit Provider Social Worker
DX: R76.11 Nonspecific reaction to tuberculin skin test without active tuberculosis (principal)
CPT/HCPCS: 71046

== ENCOUNTER → 2020-10-23 14:48 | Outpatient (POV) | payer OTHER, SELFPAY ==
[2020-10-23 15:20] VITALS: BP 125/74; PULSE 77; RESP 18; O2SAT 98; BMI 26.2
--- NOTE | 2020-10-23 17:11 | HMH.PMCON ---
Assessment and Plan (1) Degenerative joint disease (DJD) of lumbar spine Status: Chronic Category: Medical Code(s): M47.816 - Spondylosis without myelopathy or radiculopathy, lumbar region (2) Lumbar radiculopathy Status: Chronic Category: Medical Code(s): M54.16 - Radiculopathy, lumbar region (3) Low back pain Status: Chronic Category: Medical Code(s): M54.5 - Low back pain - Assessment and plan all Dx Assessment and Plan for all problems:: We will schedule the patient for an L4-L5 lumbar epidural steroid injection we will start diclofenac 75 mg 1 p.o. twice daily. Patient's been instructed to call the office if she has any issues prior to her next appointment. Patient's not on any anticoagulation therapy. I will follow-up with her after her injection reassess her symptoms at that time she has been instructed to call the office if she has any issues prior to her next appointment. Dr. Chong has reviewed this note and agrees with this plan of care. This note was dictated using voice recognition software and may contain errors or omissions HPI - Data of Consult Consult date: 10/23/20 Requesting Physician: Malissa Black APRN Primary Care Provider: Kam Gusman MD - Consult Narrative Reason for consult: Degenerative disc disease lumbar spine lumbar radiculopathy History of present illness: Ms. Alvarez is a 35 year old female who presents today for consultation in regards to her low back pain. Patient has had this back pain for a year. It is worsened by activity. 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 Patient's current pain is a 4 out of 10 however it can get up to an 8 out of 10 or 9 out of 10 when she is active. Patient has tried and failed multiple medications over the last several months. Patient is continuing to stay as active as possible she does have an MRI showing degeneration along with disc bulge and disc protrusion. Most of her pain is in her low back and bilateral legs. We had a long discussion about anti-inflammatories and epidural injections. She is failed over 4 months of medication management. CC: Malissa Black APRN [facility] History I have reviewed the patient's past medical history: Yes Medical History: Reports:: Gastroesophageal Reflux Disease(GERD), Seizures Denies:: Anxiety, Asthma, Cancer, Chronic Obstructive Pulmonary Disease (COPD), Diabetes Mellitus Type 1, Diabetes Mellitus Type 2, Hypertension, MRSA *Have you ever received a pneumonia vaccine?: No *Have you received a flu vaccine this season?: Yes Other Medical History: Reports: Anemia. Denies: Blood Transfusion Reaction Laterality Cases: Bilateral: Other Other Surgeries: Yes: No Previous Surgery, Appendectomy, Cholecystectomy, , Dilation and Curettage, Other Amputation: No Fractures: No - *Social History Smoking Status: Current every day smoker Tobacco Type: cigarettes # Packs/Day (cigarettes): 1 Alcohol Intake: never Alcohol Intake Frequency:: holidays/special occasions only Substance Use Type: denies use *Occupational Status:: other Housing: house Household Members: other *Travel in the last 8 weeks: None - Psychiatric History Pschychiatric History:: Denies:: Anxiety Family Hx:: Unable to obtain 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 Gastrointestinal: no new onset incontinence, normal bowel movements reported Genitourinary: no new onset incontinence Musculoskeletal: Back pain, leg pain Psychiatric: normal mood/ affect Neurological: [denies new onset weakness in extremities], [denies new onset balance issues] Meds Home Medications Medication Instructions Recorded Conf
== END ==
PROVIDERS: PCP Emergency Medicine; Visit Provider Clinical Nurse Specialist Family Health
DX: M47.896 Other spondylosis, lumbar region (principal); M54.16 Radiculopathy, lumbar region; M54.5 Low back pain
CPT/HCPCS: 99202; G0463

== ENCOUNTER 2020-10-31 12:15 | Day surgery (SDC) | payer OTHER, SELFPAY ==
[2020-10-31 12:44] VITALS: BP 102/55; PULSE 71; RESP 18; TEMP 36.6; O2SAT 98; BMI 23.3
[2020-10-31 13:39] VITALS: BP 103/58; PULSE 62; RESP 18; O2SAT 98
[2020-10-31 13:40] VITALS: BP 106/78; PULSE 61; RESP 18; O2SAT 98
[2020-10-31 13:50] VITALS: BP 109/67; PULSE 63; RESP 18; TEMP 36.6; O2SAT 98
--- NOTE | 2020-10-31 14:01 | HMH.PMPROC ---
- Procedure Date: 10/31/20 Time: 14:01 Anesthesiologist:: Jorge Chong MD Complications:: None Pre-procedure Diagnosis:: Degenerative disc disease of lumbar spine with lumbar radiculopathy symptoms Post-procedure Diagnosis:: Same Indications for Procedure:: Patient is a pleasant 35-year-old white female who we are treating for low back pain with lumbar radiculopathy symptoms. She has increasing pain in her low back and down her legs. We will do a lumbar epidural steroid injection today to help with her pain symptoms. Procedure Details:: Lumbar epidural steroid injection under fluoroscopy Informed consent was obtained and the risk and benefits of the procedure was explained to the patient. The patient was taken to the procedure room. The patient was placed prone on the procedure table. The patient was prepped and draped in sterile fashion. C-arm fluoroscopy was used to view the lumbar spine. Skin and subcutaneous tissues were anesthetized using lidocaine. I placed an 18-gauge epidural needle and advanced into the L4-L5 interspace using fluoroscopic guidance and [id number] to air. After confirmation of needle placement in the epidural space with dye I injected 2 mL of lidocaine 1.5% with Depo-Medrol 80 mg. Patient tolerated the procedure well with no complications. Plan and Disposition:: We will follow-up with her in 2 weeks. Will reevaluate symptoms at that time.
== END 2020-10-31 13:50 | disposition home or self-care (01) ==
PROVIDERS: PCP Emergency Medicine; Visit Provider Anesthesiology
DX: M51.16 Intervertebral disc disorders with radiculopathy, lumbar region (principal); F41.9 Anxiety disorder, unspecified; Z72.0 Tobacco use; I49.9 Cardiac arrhythmia, unspecified; R56.9 Unspecified convulsions; Z90.49 Acquired absence of other specified parts of digestive tract; Z88.6 Allergy status to analgesic agent; Z88.8 Allergy status to other drugs, medicaments and biological substances; Z79.899 Other long term (current) drug therapy
CPT/HCPCS: 62323; J1040; Q9966

== ENCOUNTER 2020-11-08 21:54 | Emergency (ER) | payer OTHER, SELFPAY ==
[2020-11-08 22:05] VITALS: BP 106/65; PULSE 82; RESP 16; TEMP 37.2; O2SAT 99; BMI 27.3
--- NOTE | 2020-11-08 22:15 | HMH.EDEAR ---
ED Disposition Clinical Impression: Otitis media Qualifiers: Otitis media type: unspecified Chronicity: acute Qualified Code(s): H66.90 - Otitis media, unspecified, unspecified ear Disposition: Home, Self-Care Condition on Discharge: Good Instructions: DI for Ear Pain-Adult Additional Instructions: use meds and see pcp for follow up 1 week Prescriptions: levoFLOXacin [Levaquin 500mg tab] 500 mg PO DAILY #7 tab Prescription Printed predniSONE [Prednisone 20mg Tab] 20 mg PO BID #10 tab Prescription Printed Referrals: Kam Gusman MD [Primary Care Provider] - - Critical Care Critical Care Time: No Attestation: On 11/08/20, the high probability of a clinically significant, sudden or life threatening deterioration of the following system(s) required my full and direct attention, intervention and personal management. The time I documented below is in addition to time spent performing reported procedures but includes the following listed in this critical care notation. Medical Decision Making - Medical Records Medical records reviewed: Yes: I reviewed the patient's medical records. - Agustín Inquiry Pt receiving controlled substance: No Vital Signs: 11/08/20 22:05 Temperature 99 F Temperature Source Oral Pulse Rate [Right] 82 Respiratory Rate 16 Blood Pressure [Right Arm] 106/65 L Blood Pressure Mean [Right Arm] 78 Blood Pressure Source [Right Arm] Automatic Cuff Blood Pressure Position [Right Arm] Sitting 02 Sat by Pulse Oximetry 99 Oxygen Delivery Method Room Air Ear HPI - General Chief complaint: Ear Stated complaint: right ear pian Time Seen by Provider: 11/08/20 22:15 Mode of Arrival: Ambulatory Source of Information: Patient, Medical Record Limitations: No Limitations Description of Symptoms (Recalled from ER Triage Doc. by RN): Pt states she has had right ear pain for about 4 weeks, denies discharge or fever. - History of Present Illness HPI Narrative: sinus pressure and rt ear pain over the last few weeks w/o rash or cough - no covid-19 exposure and not Complaint: ear pain Location: right ear Duration: intermittent Severity: moderate Discharge from ear: no Treatment prior to arrival: none - Related Data Home Medications Medication Instructions Recorded Confirmed Diclofenac Sodium [Diclofenac 75mg 75 mg PO BID 10/31/20 10/31/20 Tab] Gabapentin 300 mg PO BID 10/31/20 10/31/20 Previous Rx's Medication Instructions Recorded Methocarbamol [Robaxin 500mg Tab] 500 mg PO BIDP PRN #30 tab 08/15/20 tizanidine 4 mg tablet 4 mg PO BID PRN #180 tab 08/26/20 levoFLOXacin [Levaquin 500mg 500 mg PO DAILY #7 tab 11/08/20 tab] predniSONE [Prednisone 20mg 20 mg PO BID #10 tab 11/08/20 Tab] Allergies Allergy/AdvReac Type Severity Reaction Status Date / Time morphine [MORPHINE] Allergy Intermediate I-HIVES Verified 10/31/20 13:05 promethazine [From PHENERGAN] Allergy Intermediate PARANOID Verified 10/31/20 13:05 [facility] History - Hepatitis A Screen Drug use history?: No High risk sexual behaviors?: No History of sexually transmitted infection?: No Currently employed?: No Childcare worker?: No Do you have indoor plumbing?: Yes Do you have electricity?: Yes Attestation statement:: This patient has been screened for Hepatitis A risk factors. I have reviewed the patient's past medical history: Yes Medical History: Reports:: Arrhythmia, Gastroesophageal Reflux Disease(GERD) Denies:: Anxiety, Asthma, Cancer, Chronic Obstructive Pulmonary Disease (COPD), Diabetes Mellitus Type 1, Diabetes Mellitus Type 2, Hypertension, MRSA, Seizures Other Medical History: Reports: Anemia. Denies: Blood Transfusion Reaction Comment: stroke,depression Laterality Cases: Bilateral: Other Other Surgeries: Yes: No Previous Surgery, Appendectomy, Cholecystectomy, , Dilation and Curettage, Other (dental extraction) Amputation: No Fractures: No
[2020-11-08 22:23] VITALS: BP 112/64; PULSE 76; RESP 16; TEMP 37.1; O2SAT 99
== END 2020-11-08 22:26 | disposition home or self-care (01) ==
PROVIDERS: Emergency Provider Emergency Medicine; PCP Emergency Medicine
DX: H66.91 Otitis media, unspecified, right ear (principal); K21.9 Gastro-esophageal reflux disease without esophagitis; F17.210 Nicotine dependence, cigarettes, uncomplicated; Z88.5 Allergy status to narcotic agent
CPT/HCPCS: 99281

== ENCOUNTER → 2020-11-27 13:45 | Outpatient (POV) | payer OTHER, SELFPAY ==
--- NOTE | 2020-11-27 16:31 | HMH.PAINSOAP ---
[facility] Pain Management SOAP Note Subjective:: Patient is a 35-year-old white female who presents today for follow-up after lumbar epidural steroid injection. She has been treated for degenerative disc disease lumbar spine with lumbar radicular symptoms. Patient reports that she got up to 70% relief with her lumbar epidural steroid injection. This was her initial injection. She says she got relief for up to 2 weeks. Her pain has started to return somewhat. He says that she is noticing some left flank pain as well as low back pain. She says that it is uncomfortable . She also reports to be having mid back pain as well. This is new for her. She has had physical therapy in the past along with a continued home stretching program. Ice and heat therapies have not been beneficial for her pain. Dr. Gusman has increased her gabapentin to 400 mg 1 tablet p.o. 3 times daily. She says this is starting to help somewhat. She does not have imaging of her thoracic spine. Review of Systems General: No recent weight changes, no fever, no sleep disturbances Respiratory: No cough, no shortness of air, no recurring pulmonary infections Cardiovascular/peripheral vascular: No chest pain, no palpitations, no edema, no shortness of breath Gastrointestinal: No new onset incontinence, normal bowel movements reported Genitourinary: No new onset incontinence Musculoskeletal: Mid to low back pain Psychiatric: Normal mood/affect Neurological: [Denies weakness in extremities], [denies balance issues] Objective:: Physical exam General: Alert and oriented x3, no acute distress, pleasant and cooperative, [on room air] Lungs: Respirations even and unlabored, symmetrical chest expansion Eyes: PERRL Musculoskeletal: Flexion and extension of thoracic and lumbar spine somewhat guarded secondary to pain, deep tendon reflexes normal, strength in upper and lower extremities [5/5], [abnormal gait noted] Neurological: Speech clear, 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 She did get good relief for up to 2 weeks. We will also schedule her for an MRI of her thoracic spine. She is having new onset pain to her mid back area.The [employer] product sales representative was available today to provide the patient with relief to her mid back while in the clinic with the E-stim. Patient reported to have gotten up to 70% relief at that time. We will order the patient a e-stim device. We will see her back after her lumbar epidural steroid injection to reevaluate her symptoms and discuss her MRI results of her thoracic spine. Patient is not on any anticoagulation therapy. She has been instructed to contact clinic if she has any concerns before next appointment. Risks and benefits of the procedure have been explained to the patient. Patient would like to proceed with the procedure. The patient and I specifically discussed risk factors for COVID19. These risks include, but are not limited to age greater than 60, heart or lung disease, diabetes, immunosuppression, and travel. We also discussed NSAIDs may worsen COVID19 infection or symptoms. Patient should not use NSAIDs to treat COVID19 signs or symptoms. Patient was also informed that any type of corticosteroid of any form (oral or injection) will decrease the patient's immune system response and may increase the likelihood of COVID19 infection [address] symptoms[address] Chong has reviewed this note and agrees with this plan of care. This note was dictated using voice recognition software and make contain errors or omissions. [facility] History I have reviewed the patient's past medical history: Yes Medical History: Reports:: Arrhythmia, Gastroesophageal Reflux Disease(GERD) Denies:: Anxiety, Asthma, Cancer, Chronic Obstructive Pulmonary Disease (COPD), Diabetes Mellitus Type 1, Diabetes
[2020-11-27 16:41] VITALS: BP 128/85; PULSE 71; RESP 18; O2SAT 99; BMI 27.4
== END ==
PROVIDERS: PCP Emergency Medicine; Visit Provider Clinical Nurse Specialist Family Health
DX: M51.16 Intervertebral disc disorders with radiculopathy, lumbar region (principal); M54.6 Pain in thoracic spine
CPT/HCPCS: 99212; G0463

== ENCOUNTER → 2020-12-02 11:19 | Outpatient (CLI) | payer OTHER, SELFPAY ==
--- NOTE | 2020-12-02 11:30 | MR_ITS ---
PROCEDURE: MR THORACIC SPINE WO CON CLINICAL INDICATION: MID BACK PAIN Worse on left side. COMPARISON: No exams were available for comparison TECHNIQUE: Routine multiplanar multi echo sequences are performed without gadolinium enhancement. FINDINGS: There is normal alignment. No acute fracture or dislocation. There is some decrease in the disc space at T6-T7 and T7-T8. No disc herniation. No canal stenosis. No bony destructive process. IMPRESSION: Minimal degenerative changes T6-T7 and T7-T8 otherwise negative. No disc herniation or other acute anomaly. Dictated by: Armando Goodman MD 12/03/2020 13:59 Armando Goodman MD in [place] 12/03/2020 13:59
== END ==
PROVIDERS: PCP Emergency Medicine; Visit Provider Clinical Nurse Specialist Family Health
DX: R01.1 Cardiac murmur, unspecified (principal); M54.6 Pain in thoracic spine
CPT/HCPCS: 72146; 93306

== ENCOUNTER 2020-12-05 11:44 | Day surgery (SDC) | payer OTHER, SELFPAY ==
[2020-12-05 11:59] VITALS: BP 120/70; PULSE 74; RESP 12; TEMP 36.3; BMI 27.4
[2020-12-05 12:40] VITALS: BP 135/75; BP 138/75; PULSE 74; RESP 18; O2SAT 98
[2020-12-05 12:46] VITALS: BP 119/64; PULSE 74; RESP 15; TEMP 36.3; O2SAT 98
--- NOTE | 2020-12-05 13:01 | HMH.PMPROC ---
- Procedure Date: 12/05/20 Time: 13:01 Anesthesiologist:: Jorge Chong MD Complications:: None Pre-procedure Diagnosis:: Degenerative disc disease of lumbar spine with lumbar radiculopathy symptoms Post-procedure Diagnosis:: same Indications for Procedure:: This patient is a pleasant 35-year-old white female who we are treating for low back pain with lumbar radiculopathy symptoms. She does have increasing pain in her low back rating down both legs. She was 70 to 80% better for 2 weeks after her last lumbar epidural steroid injection her pain is now starting to return. We will do repeat lumbar epidural steroid injection under fluoroscopy today. Procedure Details:: Lumbar epidural steroid injection under fluoroscopy Informed consent was obtained and the risk and benefits of the procedure was explained to the patient. The patient was taken to the procedure room. The patient was placed prone on the procedure table. The patient was prepped and draped in sterile fashion. C-arm fluoroscopy was used to view the lumbar spine. Skin and subcutaneous tissues were anesthetized using lidocaine. I placed an 18-gauge epidural needle and advanced into the L4-L5 interspace using fluoroscopic guidance and [id number] to air. After confirmation of needle placement in the epidural space with dye I injected 2 mL of lidocaine 1.5% with Depo-Medrol 80 mg. Patient tolerated the procedure well with no complications. Plan and Disposition:: We will follow-up with her in 2 weeks. Will reevaluate symptoms at that time.
== END 2020-12-05 12:45 | disposition home or self-care (01) ==
LOC: SC.PAINP 11:45
PROVIDERS: PCP Emergency Medicine; Visit Provider Anesthesiology
DX: M51.16 Intervertebral disc disorders with radiculopathy, lumbar region (principal); I49.9 Cardiac arrhythmia, unspecified; K21.9 Gastro-esophageal reflux disease without esophagitis; D64.9 Anemia, unspecified; F41.9 Anxiety disorder, unspecified; F32.9 Major depressive disorder, single episode, unspecified; R56.9 Unspecified convulsions; Z88.5 Allergy status to narcotic agent; Z88.8 Allergy status to other drugs, medicaments and biological substances; Z72.0 Tobacco use; Z79.899 Other long term (current) drug therapy
CPT/HCPCS: 62323; J1040; Q9966

== ENCOUNTER → 2020-12-25 14:21 | Outpatient (POV) | payer OTHER, SELFPAY ==
--- NOTE | 2020-12-25 14:38 | P.CONS_ITS ---
[facility] Pain Management SOAP Note Subjective:: Pleasant 35-year-old white female who presents today for follow-up after her second lumbar epidural steroid injection. Patient rates her pain a 0 out of 10 overall doing extremely well the only pain she has is when she is working. 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 Patient has difficulty with back pain when she is bending and assisting patients. Patient and I discussed a back brace she is interested in pursuing this. ROS General: no recent weight change, no fever, no sleep disturbances Respiratory: no cough, no shortness of air, no recurring pulmonary infections Cardiovascular/Peripheral Vascular: No chest pain, No palpitations, no edema, no shortness of breath. Gastrointestinal: no new onset incontinence, normal bowel movements reported Genitourinary: no new onset incontinence Musculoskeletal: Back pain Psychiatric: normal mood/ affect Neurological: [denies new onset weakness in extremities], [denies new onset balance issues] Objective:: Physical Exam General: Alert and oriented x3, no acute distress, pleasant and cooperative, [on room air] Lungs: Resps E/U, Symmetrical chest expansion, Eyes: PERRL Musculoskeletal: Flexion and extension of lumbar spine somewhat guarded secondary to pain, deep tendon reflexes normal, strength in upper and lower extremities [5/5], normal gait noted Neurological: speech clear, manager grant equal, no gross sensory deficits Assessment:: Degenerative disc disease lumbar spine lumbar radiculopathy, back pain Plan:: We will outfit the patient with a back brace I do believe this will help her with her work and her functionality throughout the day. I will follow up with the patient on a as needed basis. She has been instructed to continue on if she needs any further assistance from our office she is welcome to give us a call. Dr. Chong has reviewed this note and agrees with this plan of care. This note was dictated using voice recognition software and may contain errors or omissions [facility] History I have reviewed the patient's past medical history: Yes Medical History: Reports:: Arrhythmia, Gastroesophageal Reflux Disease(GERD) Denies:: Anxiety, Asthma, Cancer, Chronic Obstructive Pulmonary Disease (COPD), Diabetes Mellitus Type 1, Diabetes Mellitus Type 2, Hypertension, MRSA, Seizures *Have you ever received a pneumonia vaccine?: No *Have you received a flu vaccine this season?: No Other Medical History: Reports: Anemia. Denies: Blood Transfusion Reaction Laterality Cases: Bilateral: Other Other Surgeries: Yes: No Previous Surgery, Appendectomy, Cholecystectomy, C- section, Dilation and Curettage, Tubal Ligation, Other Amputation: No Fractures: No - *Social History Smoking Status: Current every day smoker Tobacco Type: cigarettes # Packs/Day (cigarettes): 1 Alcohol Intake: never Alcohol Intake Frequency:: holidays/special occasions only Substance Use Type: denies use *Occupational Status:: employed Housing: house Household Members: significant other, children *Travel in the last 8 weeks: None - Psychiatric History Pschychiatric History:: Denies:: Anxiety Family Hx:: Unable to obtain OVERHAULER history: Spontaneous
[2020-12-25 15:13] VITALS: BP 121/74; PULSE 69; RESP 18; O2SAT 98; BMI 27.4
== END ==
PROVIDERS: PCP Emergency Medicine; Visit Provider Clinical Nurse Specialist Family Health
DX: M51.16 Intervertebral disc disorders with radiculopathy, lumbar region (principal)
CPT/HCPCS: 99212; G0463

== ENCOUNTER 2021-03-28 18:04 | Emergency (ER) | payer OTHER, SELFPAY ==
[2021-03-28 18:05] VITALS: BP 109/70; PULSE 72; RESP 18; TEMP 36.8; O2SAT 99; BMI 28.9
[2021-03-28 18:30] VITALS: BP 109/70; PULSE 72; RESP 18; TEMP 36.8; O2SAT 99
--- NOTE | 2021-03-28 18:31 | HMH.EDUTC ---
[facility] [place] Clinical Impression: Boil Cellulitis Qualifiers: Site of cellulitis: unspecified site Qualified Code(s): L03.90 - Cellulitis, unspecified Disposition: Home, Self-Care Condition on Discharge: Good Instructions: Cellulitis, Boil, DI for Boils Additional Instructions: *Start antibiotic(s) immediately and be sure to take as ordered for the FULL length of time although you may be feeling better or start to see improvement in the next 24-48 hours *Monitor closely. Outlined redness so that you can monitor easier. Follow up immediately for new or worsening symptoms including but not limited to redness, swelling, streaking from site fever or chills. *Warm compress 15 minutes 3-4 times day *Never squeeze or pop these on your own. Seek immediate medical attention next time this occurs *Monitor Temp. Tylenol every 4 hours as needed and ibuprofen every 6 hours as needed (as long as your primary care doctor has told you that it is ok to take both. For fever, aches, pain. ER if no less that 101 despite Tylenol and ibuprofen Follow up with your family doctor/primary care physician in the next 48-72 hours if no improvement Continue using Mupiriocin as prescribed and apply to boil on inner thigh Take oral medication as prescribed Return if needed Prescriptions: cephALEXin [cephALEXin 500mg capsule*] 500 mg PO Q6H 5 Days #20 cap Transmission Status: Pending to [facility] Referrals: Kam Gusman MD [Primary Care Provider] - As needed Time of Disposition: 18:43 Medical Decision Making - Agustín Inquiry Pt receiving controlled substance: No Agustín was queried for this patient: No Vital Signs: 03/28/21 18:05 Temperature 98.3 F Temperature Source Oral Pulse Rate [Right Brachial] 72 Respiratory Rate 18 Blood Pressure [Right Arm] 109/70 L Blood Pressure Mean [Right Arm] 83 Blood Pressure Source [Right Arm] Automatic Cuff Blood Pressure Position [Right Arm] Sitting 02 Sat by Pulse Oximetry 99 Oxygen Delivery Method Room Air [facility] [place] - General Stated complaint: Boil on Left thigh Time Seen by Provider: 03/28/21 18:31 Mode of Arrival: Ambulatory Source of Information: Patient Limitations: No Limitations Description of Symptoms (Recalled from Triage Doc. by RN): PATIENT C/O BOIL-LIKE BUMP TO LEFT UPPER THIGH AND BUG BITE TO LEFT CALF X 1 WEEK HEENT Symptoms (Recalled from RN notes): No Resp Symptoms (Recalled from RN notes): No Skin Symptoms (Recalled from RN notes): Yes MS Symptoms (Recalled from RN notes): No Functional Status (Recalled from RN notes): WNL - History of Present Illness Provider Complaint: Patient states that she has been having boil like area on the inner aspect of her left upper leg State that she thinks it is where her legs rub together at times when she walks States that also she had spider bite on her left calf area and was seen and they give her some mupirocin and it has not got any better and looking more red so she came in today wanted to have both looked at - Related Data Home Medications Medication Instructions Recorded Confirmed Gabapentin 600 mg PO TID 03/28/21 03/28/21 Montelukast Sodium [Singulair] 10 mg PO DAILY 03/28/21 03/28/21 Tramadol HCl [Tramadol 50mg 50 mg PO BID 03/28/21 03/28/21 Tab] Previous Rx's Medication Instructions Recorded cephALEXin [cephALEXin 500mg 500 mg PO Q6H 5 Days #20 cap 03/28/21 capsule*] Allergies Allergy/AdvReac Type Severity Reaction Status Date / Time morphine [MORPHINE] Allergy Intermediate I-HIVES Verified 03/23/21 15:48 promethazine [From PHENERGAN] Allergy Intermediate PARANOID Verified 03/23/21 15:48 - Worker's Comp Is this a Worker's Comp case?: No [facility] History - Hepatitis A Screen Drug use history?: No High risk sexual behaviors?: No History of sexually transmitted infection?: No Currently employed?: No Childcare worker?: No Do you have indoor plumbing?: Yes Do you have electricity?: Yes At
== END 2021-03-28 18:49 | disposition home or self-care (01) ==
PROVIDERS: Emergency Provider Nurse Practitioner; PCP Emergency Medicine
DX: L02.416 Cutaneous abscess of left lower limb (principal); S80.862A Insect bite (nonvenomous), left lower leg, initial encounter; K21.9 Gastro-esophageal reflux disease without esophagitis; F17.210 Nicotine dependence, cigarettes, uncomplicated
CPT/HCPCS: 99202; G0463

== ENCOUNTER → 2021-03-31 13:03 | Outpatient (CLI) | payer OTHER, SELFPAY ==
--- NOTE | 2021-03-31 13:03 | CT_ITS ---
PROCEDURE: CT SINUS WO CON CLINICAL HISTORY: sinucitis COMPARISON: No exams were available for comparison TECHNIQUE: Axial images obtained with sagittal and coronal reformats. All CT scans at the facility use one or more dose reduction, viz: automated exposure control, ma/kV adjustment per patient size (including targeted exams where dose is matched to indication, i.e. head), or iterative reconstruction technique. FINDINGS: No sinus air-fluid levels. No significant mucosal thickening. There is a 1 cm retention cyst in the floor of the right maxillary sinus. There are bilateral mastoid effusions. There is some rounding off of the scutum of the right temporal bone with some increase in density in the epitympanic region on both sides. A cholesteatoma on the right is not excluded. Mastoid CT with thin sections may provide further evaluation. There is suggestion of some thickening of the right temp panic membrane with some debris in the right external auditory canal. Small nodular density is present in the right parotid gland anteriorly measuring 6 mm with low-density centrally possibly due to a lymph node. There is moderate leftward nasal septal deviation with narrowing of the left nasal canal. The TMJs have an unremarkable appearance as do the orbits. IMPRESSION: 1 cm retention cyst right maxillary sinus Bilateral mastoid sinus disease with suggestion of erosion of the tip of the scutum on the right which could be seen with cholesteatoma. Dedicated CT of the mastoid sinuses with thin sections may provide further evaluation. Mild thickening of the right tympanic membrane Dictated by: Armando Goodman MD 03/31/2021 18:03 Armando Goodman MD in [place] 03/31/2021 18:03
== END ==
PROVIDERS: PCP Emergency Medicine; Visit Provider Otolaryngology
DX: J32.9 Chronic sinusitis, unspecified (principal)
CPT/HCPCS: 70486

== ENCOUNTER 2021-05-25 13:14 | Emergency (ER) | payer OTHER, SELFPAY ==
[2021-05-25 13:16] VITALS: BP 100/63; PULSE 72; RESP 18; TEMP 36.9; O2SAT 97; BMI 28.3
--- NOTE | 2021-05-25 14:11 | HMH.EDBACK ---
ED Disposition Clinical Impression: Thoracic myofascial strain Qualifiers: Encounter type: initial encounter Qualified Code(s): S29.019A - Strain of muscle and tendon of unspecified wall of thorax, initial encounter Disposition: Home, Self-Care Condition on Discharge: Good Instructions: DI for Back Strain or Sprain Prescriptions: Ibuprofen [Ibuprofen 800mg Tablet] 800 mg PO TIDP PRN #20 tab PRN Reason: Moderate Pain Transmission Status: Pending to [facility] methocarbamoL [Methocarbamol 500mg Tablet] 1,000 mg PO TID 10 Days #60 tab Transmission Status: [facility] Referrals: Kam Gusman MD [Primary Care Provider] - - Critical Care Critical Care Time: No Attestation: On 05/25/21, the high probability of a clinically significant, sudden or life threatening deterioration of the following system(s) required my full and direct attention, intervention and personal management. The time I documented below is in addition to time spent performing reported procedures but includes the following listed in this critical care notation. Medical Decision Making - Medical Records Medical records reviewed: Yes: I reviewed the patient's medical records. - Agustín Inquiry Pt receiving controlled substance: No Vital Signs: 05/25/21 13:16 Temperature 98.4 F Temperature Source Oral Pulse Rate [Right Radial] 72 Respiratory Rate 18 Blood Pressure [Right Arm] 100/63 L Blood Pressure Mean [Right Arm] 75 Blood Pressure Source [Right Arm] Automatic Cuff Blood Pressure Position [Right Arm] Sitting 02 Sat by Pulse Oximetry 97 Oxygen Delivery Method Room Air Orders (Tests/Meds): ED MEDICATIONS Discontinued Medications Generic Name Dose Route Start Last Admin Trade Name Freq PRN Reason Stop Dose Admin Diazepam 5 mg 05/25/21 13:56 05/25/21 14:06 Diazepam 5mg Tablet PO 05/25/21 13:57 5 mg ONCE ONE Administration Ketorolac Tromethamine 30 mg 05/25/21 13:56 05/25/21 14:06 Ketorolac 30mg/Ml Vial IM 05/25/21 13:57 30 mg ONCE ONE Administration - Reevaluation(s) Time: 14:19 Reevaluation #1: On reevaluation, patient is feeling much better. Repeat neurologic exam is normal. Patient again has no midline tenderness. No evidence of spinal cord compression or neurologic complication. Patient follow-up with PCP in 48 hours. Given strict return precautions. Verbalized understanding. Medical Decision Narrative: 35-year-old female presented to the emergency department with some back pain. Patient symptoms are consistent with thoracic strain. Patient does have some evidence of muscle spasm. Treated symptomatically reevaluated. Back Pain HPI - General Chief Complaint: Back Pain/Injury Stated Complaint: a/o 05/21 back injury Time Seen by Provider: 05/25/21 13:20 Mode of Arrival: Ambulatory Limitations: No Limitations Description of Symptoms (Recalled from ER Triage Doc. by RN): Pt c/o left side back pain in rib area. 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 - History of Present Illness HPI Narrative: 35-year-old female presented to the emergency department with some left-sided back pain. 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 It is in her mid back and located in the left lateral side. Patient states that she was taking some aspirin over the weekend, however is not helping for her pain. Patient states that the pain is worse when she tries to change positions or walk. She denies any chest pain or shortness of breath. Abdominal pain or vomiting. No diarrhea. No hematuria or dysuria. No fevers or chills. No headache or change in vision. - Related Data Home Medications Medication Instructions Recorded Confirmed Montelukast Sodium [Singulair] 10 mg PO DAILY 03/28/21 05/18/21 Previous Rx's Medication Instructions
[2021-05-25 14:15] VITALS: BP 127/71; PULSE 76; RESP 16; TEMP 36.8; O2SAT 98
== END 2021-05-25 14:27 | disposition home or self-care (01) ==
PROVIDERS: Emergency Provider Emergency Medicine; PCP Emergency Medicine
DX: S29.019A Strain of muscle and tendon of unspecified wall of thorax, initial encounter (principal); X50.0XXA Overexertion from strenuous movement or load, initial encounter; Y92.69 Other specified industrial and construction area as the place of occurrence of the external cause; Y99.0 Civilian activity done for income or pay
CPT/HCPCS: 99281

== ENCOUNTER 2021-06-13 18:58 | Emergency (ER) | payer OTHER, SELFPAY ==
[2021-06-13 19:09] VITALS: BP 105/63; PULSE 77; RESP 14; TEMP 36.9; O2SAT 98; BMI 28.3
[2021-06-13 19:17] VITALS: BP 105/63; PULSE 77; RESP 18; TEMP 36.9
--- NOTE | 2021-06-13 20:04 | HMH.EDUTC ---
[facility] [place] Impression: Viral syndrome, Exposure to COVID-19 virus Disposition: Home, Self-Care Condition on Discharge: Good Instructions: DI for COVID-19 (Suspected or Confirmed ), Preventing the Spread of Coronavirus Discharge Instructions Additional Instructions: Drink plenty of fluids. Take tylenol or ibuprofen for pain or fever. Take the medications as directed. Follow up with your regular doctor. GO TO THE ER FOR ANY WORSENING SYMPTOMS Quarantine until you know the results of your covid-19 test. If it is positive, the health department should call you and give you further instructions about your length of Quarantine and other things. Notify your school or workplace of your results and follow their instructions regarding return to work/school. The cough medication (promethazine dm) will make you drowsy, so don't drive or operate heavy machinery after taking it. Prescriptions: Brompheniramine/Pseudoephed/Dm [Bromfed Dm Cough Syrup] 5 ml PO Q6HP PRN #240 ml PRN Reason: Cough Transmission Status: Received by [facility] predniSONE [Prednisone 20mg Tab] 20 mg PO BID 4 Days #8 tab Transmission Status: Received by [facility] Referrals: Kam Gusman MD [Primary Care Provider] - Forms: Work/School Release Time of Disposition: 20:06 Medical Decision Making - Medical Records Medical records reviewed: No: I reviewed the patient's medical records. - Agustín Inquiry Pt receiving controlled substance: No Vital Signs: 06/13/21 19:09 06/13/21 19:17 Temperature 98.5 F 98.5 F Temperature Source Oral Pulse Rate 77 Pulse Rate [Left] 77 Respiratory Rate 14 18 Blood Pressure 105/63 L Blood Pressure [Right Arm] 105/63 L Blood Pressure Mean [Right Arm] 77 02 Sat by Pulse Oximetry 98 - Lab Data Lab Results 06/13/21 19:16: Chlamy pneumoniae PCR Not detected, Adenovirus (PCR) Not detected, B. pertussis DNA (PCR) Not detected, Coronavirus OC43 (PCR) Not detected, Coronavirus HKU1 (PCR) Not detected, Coronavirus 229E (PCR) Not detected, SARS-CoV-2 (PCR) Detected A, Coronavirus NL63 (PCR) Not detected, Human Metapneumovir PCR Not detected, Influenza A (H1) PCR Not detected, Influ A (H1N1/09) PCR Not detected, Influenza A (H3) PCR Not detected, Influenza Type A (PCR) Not detected, Influenza Type B (PCR) Not detected, M. pneumoniae (PCR) Not detected, Parainfluenza 1 (PCR) Not detected, Parainfluenza 2 (PCR) Not detected, Parainfluenza 3 (PCR) Not detected, Parainfluenza 4 (PCR) Not detected, RSV (PCR) Not detected, Entero/Rhino (PCR) Not detected [facility] [place] - General Stated complaint: covid test, cough,sore throat,SOB, MIMS runny nose, Time Seen by Provider: 06/13/21 19:35 Mode of Arrival: Ambulatory Source of Information: Patient Limitations: No Limitations Description of Symptoms (Recalled from Triage Doc. by RN): BODY ACHES, SORE THROAT, CONGESTION, RUNNY NOSE AND CHILLS. HEENT Symptoms (Recalled from RN notes): Yes (CONGESTION, SORE THROAT AND RUNNY NOSE) Resp Symptoms (Recalled from RN notes): No Skin Symptoms (Recalled from RN notes): No MS Symptoms (Recalled from RN notes): No Functional Status (Recalled from RN notes): BODY ACHES AND CHILLS - History of Present Illness Provider Complaint: She reports that she has had body aches, fever, malaise for the past 2 days. - Related Data Home Medications Medication Instructions Recorded Confirmed Montelukast Sodium [Singulair] 10 mg PO DAILY 03/28/21 05/18/21 Previous Rx's Medication Instructions Recorded diclofenac sodium 1 % topical gel 2 g TOPICAL QID #100 g 05/18/21 gabapentin 600 mg tablet 600 mg PO TID #90 tab 05/18/21 lidocaine 5 % topical patch 1 patch TOPICAL DAILY #30 each 05/18/21 tramadol 50 mg tablet 50 mg PO BID #60 tab 05/18/21 Ibuprofen [Ibuprofen 800mg 800 mg PO TIDP PRN #20 tab 05/25/21 Tablet] methocarbamoL [Methocarbamol 500mg 1,000 mg PO TID 10 Days #60 tab 08
[2021-06-13 20:12] LABS: Adenovirus,PCR Not Detected (NotDetected); Bordetella Pertussis Not Detected (NotDetected); Chlamydophila Pneumoniae, PCR Not Detected (NotDetected); Coronavirus 229E Not Detected (NotDetected); Coronavirus NL63 Not Detected (NotDetected); Coronavirus OC43 Not Detected (NotDetected); Coronovirus HKU1,PCR Not Detected (NotDetected); Human Metapneumovirus Not Detected (NotDetected); Influenza A, PCR Not Detected (NotDetected); Influenza AH1, 2009 Not Detected (NotDetected); Influenza AH1, PCR Not Detected (NotDetected); Influenza AH3,PCR Not Detected (NotDetected); Influenza B, PCR Not Detected (NotDetected); Mycoplasma Pneumoniae, PCR Not Detected (NotDetected); Parainfluenza 1, PCR Not Detected (NotDetected); Parainfluenza 2, PCR Not Detected (NotDetected); Parainfluenza 3, PCR Not Detected (NotDetected); Parainfluenza 4, PCR Not Detected (NotDetected); Respiratory Syncytial Virus Not Detected (NotDetected); Rhinovirus/Enterovirus Not Detected (NotDetected)
[2021-06-13 21:39] LABS: Coronavirus 19, PCR Detected (NotDetected)
--- NOTE | 2021-06-14 13:15 | PC.NURSE ---
relayed positive covid results to patient
[2021-06-14 19:56] LABS: UTC Strep Screen (Rapid) Negative (Negative)
== END 2021-06-13 20:19 | disposition home or self-care (01) ==
PROVIDERS: Emergency Provider Nurse Practitioner Family; PCP Emergency Medicine
DX: U07.1 COVID-19 (principal); B34.9 Viral infection, unspecified
CPT/HCPCS: 87581; 87633; 87798; 87880; 99203; G0463

== ENCOUNTER 2021-12-15 19:40 | Emergency (ER) | payer OTHER, SELFPAY ==
[2021-12-15 21:09] VITALS: BP 108/50; PULSE 77; RESP 19; TEMP 37.3; O2SAT 97; BMI 27.2
--- NOTE | 2021-12-15 21:12 | HMH.EDUTC ---
[facility] [place] Clinical Impression: Viral syndrome, Bronchitis Disposition: Home, Self-Care Condition on Discharge: Good Instructions: DI for Acute Bronchitis, DI for Viral Syndrome Additional Instructions: Drink plenty of fluids. Take tylenol or ibuprofen for pain or fever. Take the medications as directed. Follow up with your regular doctor. GO TO THE ER FOR ANY WORSENING SYMPTOMS Quarantine until you know the results of your covid-19 test. Notify your school or workplace of your results and follow their instructions regarding return to work/school. Prescriptions: Ondansetron [Zofran 4mg ODT] 4 mg PO Q8HP PRN #20 tab PRN Reason: Nausea Transmission Status: Received by [facility] Benzonatate [Benzonatate 100mg cap] 100 mg PO TIDP PRN #30 cap PRN Reason: Cough Transmission Status: Received by [facility] methylPREDNISolone [Medrol] 4 mg PO DIRECTED 6 Days #21 packet Transmission Status: Received by [facility] Azithromycin [Z-Armando 250mg Tab*] 250 mg PO UD DOSE PK #6 tab Transmission Status: Received by [facility] Referrals: Kam Gusman MD [Primary Care Provider] - Forms: Work/School Release Time of Disposition: 21:32 Medical Decision Making - Medical Records Medical records reviewed: No: I reviewed the patient's medical records. - Agustín Inquiry Pt receiving controlled substance: No Vital Signs: 12/15/21 21:09 12/15/21 21:53 Temperature 99.2 F 99.2 F Temperature Source Oral Pulse Rate 77 Pulse Rate [Left] 77 Respiratory Rate 19 19 Blood Pressure 108/50 L Blood Pressure [Right Arm] 108/50 L Blood Pressure Mean [Right Arm] 69 02 Sat by Pulse Oximetry 97 - Lab Data Lab results reviewed: Yes: I reviewed the patient's lab results. Lab Results 12/15/21 21:10: Strep Scn Rapid Clinic Negative Orders (Tests/Meds): ORDERS Category Date Time Status Full Resp Panel w/COVID ([facility]) Routine Lab 12/15/21 21:10 Received Strep Screen Confirmation Stat Micro 12/15/21 21:10 [facility] HPI - General Stated complaint: cough ears,body aches Time Seen by Provider: 12/15/21 21:12 Mode of Arrival: Ambulatory Source of Information: Patient Limitations: No Limitations Description of Symptoms (Recalled from Triage Doc. by RN): pt c/o a cough, bilateral ear aches, body aches and sore throat x3 days. HEENT Symptoms (Recalled from RN notes): Yes Resp Symptoms (Recalled from RN notes): Yes Skin Symptoms (Recalled from RN notes): No MS Symptoms (Recalled from RN notes): No Functional Status (Recalled from RN notes): wnl - History of Present Illness Provider Complaint: She c/o sore throat and a nonproductive cough for the past 3 days. - Related Data Home Medications Medication Instructions Recorded Confirmed Montelukast Sodium [Singulair] 10 mg PO DAILY 03/28/21 05/18/21 Previous Rx's Medication Instructions Recorded diclofenac sodium 1 % topical gel 2 g TOPICAL QID #100 g 05/18/21 gabapentin 600 mg tablet 600 mg PO TID #90 tab 05/18/21 lidocaine 5 % topical patch 1 patch TOPICAL DAILY #30 each 05/18/21 tramadol 50 mg tablet 50 mg PO BID #60 tab 05/18/21 Ibuprofen [Ibuprofen 800mg 800 mg PO TIDP PRN #20 tab 05/25/21 Tablet] methocarbamoL [Methocarbamol 500mg 1,000 mg PO TID 10 Days #60 tab 05/25/21 Tablet] Brompheniramine/Pseudoephed/Dm 5 ml PO Q6HP PRN #240 ml 06/13/21 [Bromfed Dm Cough Syrup] predniSONE [Prednisone 20mg 20 mg PO BID 4 Days #8 tab 06/13/21 Tab] Azithromycin [Z-Armando 250mg Tab*] 250 mg PO UD DOSE PK #6 tab 12/15/21 Benzonatate [Benzonatate 100mg 100 mg PO TIDP PRN #30 cap 12/15/21 cap] Ondansetron [Zofran 4mg ODT] 4 mg PO Q8HP PRN #20 tab 12/15/21 methylPREDNISolone [Medrol] 4 mg PO DIRECTED 6 Days #21 12/15/21 packet Allergies Allergy/AdvReac Type Severity Reaction Status Date / Time morphine [MORPHINE] Allergy Intermediate I-HIVES Karen
[2021-12-15 21:26] LABS: UTC Strep Screen (Rapid) Negative (Negative)
[2021-12-15 21:37] LABS: Adenovirus,PCR Not Detected (NotDetected); Bordetella Pertussis Not Detected (NotDetected); Chlamydophila Pneumoniae, PCR Not Detected (NotDetected); Coronavirus 19, PCR Not Detected (NotDetected); Coronavirus 229E Not Detected (NotDetected); Coronavirus NL63 Not Detected (NotDetected); Coronavirus OC43 Not Detected (NotDetected); Coronovirus HKU1,PCR Not Detected (NotDetected); Human Metapneumovirus Not Detected (NotDetected); Influenza A, PCR Not Detected (NotDetected); Influenza AH1, 2009 Not Detected (NotDetected); Influenza AH1, PCR Not Detected (NotDetected); Influenza B, PCR Not Detected (NotDetected); Mycoplasma Pneumoniae, PCR Not Detected (NotDetected); Parainfluenza 1, PCR Not Detected (NotDetected); Parainfluenza 2, PCR Not Detected (NotDetected); Parainfluenza 3, PCR Not Detected (NotDetected); Parainfluenza 4, PCR Not Detected (NotDetected); Respiratory Syncytial Virus Not Detected (NotDetected); Rhinovirus/Enterovirus Not Detected (NotDetected)
[2021-12-15 21:53] VITALS: BP 108/50; PULSE 77; RESP 19; TEMP 37.3
[2021-12-16 00:57] LABS: Influenza AH3,PCR Detected (NotDetected)
== END 2021-12-15 21:55 | disposition home or self-care (01) ==
PROVIDERS: Emergency Provider Nurse Practitioner Family; PCP Emergency Medicine
DX: B34.9 Viral infection, unspecified (principal); H92.03 Otalgia, bilateral; M79.10 Myalgia, unspecified site; J02.9 Acute pharyngitis, unspecified; D64.9 Anemia, unspecified; R05.9 Cough, unspecified; Z20.822 Contact with and (suspected) exposure to COVID-19; I49.9 Cardiac arrhythmia, unspecified; K21.9 Gastro-esophageal reflux disease without esophagitis; F32.A Depression, unspecified; F41.9 Anxiety disorder, unspecified; F17.210 Nicotine dependence, cigarettes, uncomplicated; Z86.73 Personal history of transient ischemic attack (TIA), and cerebral infarction without residual deficits
CPT/HCPCS: 87581; 87632; 87798; 87880; 99213; C9803; G0463; U0003; U0005

== ENCOUNTER 2022-04-17 18:14 | Emergency (ER) | payer OTHER, SELFPAY ==
[2022-04-17 18:15] VITALS: BP 115/76; PULSE 85; RESP 18; TEMP 36.7; O2SAT 95; BMI 27.9
--- NOTE | 2022-04-17 18:30 | XR_ITS ---
PROCEDURE INFORMATION: Exam: XR Lumbosacral Spine Exam date and time: 04/17/2022 6:32 PM Age: 36 years old Clinical indication: Low back pain TECHNIQUE: Imaging protocol: Radiologic exam of the lumbosacral spine. Views: 2 or 3 views. COMPARISON: MR LUMBAR SPINE WO CON 09/04/2020 2:25 PM FINDINGS: Bones/joints: Moderate narrowing of the L5-S1 disc space. Approximate 4-5 mm retrolisthesis of L5 with respect S1. Findings appear stable compared with the previous MRI lumbar spine 09/04/2020. Soft tissues: Unremarkable. IMPRESSION: Moderate degenerative arthritic type change L5-S1 with approximate 4-5 mm retrolisthesis of L5 respect S1. Findings stable since 09/04/2020.
--- NOTE | 2022-04-17 19:05 | HMH.EDUTC ---
[facility] [place] Clinical Impression: Low back pain with radiation Disposition: Home, Self-Care Condition on Discharge: Good Instructions: Low Back Pain, Cyclobenzaprine, Methylprednisolone Injection Additional Instructions: Go home and rest. It would be best if you rested for the next few days. No heavy lifting. No twisting. Try not to lift anything heavier than a gallon of milk for the next few days. Take the oral medications as directed. The muscle relaxer (cyclobenzaprine--Flexeril) will make you drowsy, so don't drive or operate heavy machinery after taking it. Don't start the oral steroids (medrol dose pack) until tomorrow, since you had the shots in here today. Follow up with your regular doctor. GO TO THE ER FOR ANY WORSENING SYMPTOMS OR CONCERN, ESPECIALLY BOWEL OR BLADDER ISSUES, SADDLE AREA NUMBNESS, FEVER, ETC Prescriptions: Cyclobenzaprine HCl [Cyclobenzaprine 10mg Tab] 10 mg PO BIDP PRN #20 tab PRN Reason: Muscle Spasm Transmission Status: Received by [id number] methylPREDNISolone [Medrol] 4 mg PO DIRECTED 6 Days #21 packet Transmission Status: Received by [id number] Referrals: Kam Gusman MD [Primary Care Provider] - Forms: Work/School Release Medical Decision Making - Medical Records Medical records reviewed: No: I reviewed the patient's medical records. - Agustín Inquiry Pt receiving controlled substance: No Vital Signs: 04/17/22 18:15 04/17/22 19:35 Temperature 98.1 F 98.1 F Temperature Source Oral Oral Pulse Rate 85 Pulse Rate [Brachial] 85 Respiratory Rate 18 18 Blood Pressure 115/76 Blood Pressure [Right Arm] 115/76 Blood Pressure Mean [Right Arm] 89 Blood Pressure Source Automatic Cuff Blood Pressure Source [Right Arm] Automatic Cuff Blood Pressure Position Sitting Blood Pressure Position [Right Arm] Sitting 02 Sat by Pulse Oximetry 95 Oxygen Delivery Method Room Air - Lab Data Lab results reviewed: Yes: I reviewed the patient's lab results. Orders (Tests/Meds): ED MEDICATIONS Discontinued Medications Generic Name Dose Route Start Last Admin Trade Name Freq PRN Reason Stop Dose Admin Ketorolac Tromethamine 60 mg 04/17/22 19:05 04/17/22 19:34 Ketorolac 60mg/2ml Vial IM 04/17/22 19:06 60 mg ONCE ONE Administration Methylprednisolone Sodium Succinate 125 mg 04/17/22 19:05 04/17/22 19:34 Methylprednisolone Sod Succ 125mg Vial IM 04/17/22 19:06 125 mg ONCE ONE Administration - Radiology Data #1 Image(s): L-Spine Image Reviewed: Yes I reviewed the patient's radiology image, Yes I have reviewed radiologist's interpretation Preliminary Findings: No Fracture Seen [facility] [place] - General Stated complaint: back pain Time Seen by Provider: 04/17/22 19:05 Mode of Arrival: Ambulatory Source of Information: Patient Limitations: No Limitations Description of Symptoms (Recalled from Triage Doc. by RN): LOWER BACK PAIN, PAIN SINCE TUESDAY HEENT Symptoms (Recalled from RN notes): No Resp Symptoms (Recalled from RN notes): No Skin Symptoms (Recalled from RN notes): No MS Symptoms (Recalled from RN notes): Yes Functional Status (Recalled from RN notes): N/A - History of Present Illness Provider Complaint: She states that she felt something pull in her lower back 4 days ago. Since then she has had low back pain that radiates down her left leg. She has rested and took ibuprofen at home with not much improvement of her symptoms. She denies any urinary issues or bowel issues. She denies any saddle area numbness. - Related Data Home Medications Medication Instructions Recorded Confirmed Montelukast Sodium [Singulair] 10 mg PO DAILY 03/28/21 05/18/21 Previous Rx's Medication Instructions Recorded diclofenac sodium 1 % topical gel 2 g TOPICAL QID #100 g 05/18/21 gabapentin 600 mg tablet 600 mg PO TID #90 tab 05/18/21 lidocaine 5 % topical patch 1 patch TOPICAL DAILY #30 each
[2022-04-17 19:35] VITALS: BP 115/76; PULSE 85; RESP 18; TEMP 36.7
== END 2022-04-17 19:37 | disposition home or self-care (01) ==
PROVIDERS: Emergency Provider Nurse Practitioner Family; PCP Emergency Medicine
DX: M54.50 Low back pain, unspecified (principal)
CPT/HCPCS: 72100; 96372; 99212; G0463

== ENCOUNTER 2022-09-22 13:00 | Outpatient (RCR) | payer OTHER, SELFPAY | END 2022-09-29 09:49 | disposition home or self-care (01) | LOC: PT.CARL 13:00 | PROVIDERS: PCP Family Medicine; Visit Provider Family Medicine | DX: M54.50 Low back pain, unspecified (principal); M54.16 Radiculopathy, lumbar region | CPT/HCPCS: 97010; 97014; 97110; 97140; 97163; 97535; G0283 ==

== ENCOUNTER → 2022-11-30 08:06 | Outpatient (CLI) | payer OTHER, SELFPAY ==
[2022-11-30 09:07] LABS: Basophils # 0.1 K/mm3 (0-0.2); Basophils % 0.7 % (0.1-2.0); Eosinophils # 0.1 K/mm3 (0.0-0.4); Eosinophils % 0.9 % (0.1-12.0); Hematocrit 40.4 % (37.0-47.0); Hemoglobin 13.5 g/dL (12.2-16.2); Lymphocytes # 2.8 K/mm3 (0.7-4.5); Lymphocytes % 25.3 % (10-50); Mean Corpuscular HGB Conc 33.4 g/dL (31.8-35.4); Mean Corpuscular Hemoglobin 28.7 pg (27.0-31.2); Mean Corpuscular Volume 86.1 fl (81-99); Mean Platelet Volume 8.9 fl (7.4-10.4); Monocytes # 0.7 K/mm3 (0.1-1.0); Monocytes % 6.5 % (1.7-9.3); Neutrophils # 7.5 K/mm3 (1.8-7.8); Neutrophils % 66.5 % (37.0-80.0); Platelet Count 327 K/mm3 (142-424); Red Blood Count 4.69 M/mm3 (4.20-5.40); Red Cell Distribution Width 13.4 % (11.5-17.5); White Blood Count 11.2 K/mm3 (4.8-10.8)
[2022-11-30 09:27] LABS: Alanine Aminotransferase 21 U/L (12-78); Albumin Level 4.1 g/dl (3.5-5.0); Albumin/Globulin Ratio 1.6 (1.1-1.8); Alkaline Phosphatase 100 U/L (38-126); Anion Gap 6.8 mEq/L (5-15); Aspartate Amino Transferase 21 U/L (14-36); Bilirubin,Total 0.5 mg/dl (0.2-1.3); Blood Urea Nitrogen 11 mg/dl (7-17); Calcium 8.7 mg/dl (8.4-10.2); Carbon Dioxide 26 mmol/L (22.0-30.0); Chloride 107 mmol/L (98-107); Cholesterol 113 mg/dl (140-200); Estimated Glomerular Filt Rate 112 ml/min (>60); GFR (African American) 135 ML/MIN (>60); Globulin 2.6 g/dL (1.3-3.2); Glucose 90 mg/dl (74-100); HDL Cholesterol 38 mg/dl (40-60); Potassium 3.8 mmoL/L (3.5-5.1); Sodium 136 mmol/L (136-145); Total Protein,Serum 6.7 g/dl (6.3-8.2); Triglycerides 218 mg/dl (30-150); VLDL Cholesterol 44 mg/dL (0-40)
[2022-11-30 09:38] LABS: Direct LDL Cholesterol 45.48 mg/dL (100-129)
[2022-11-30 09:44] LABS: Free Thyroxine Index 2.8 ug/dL (5.93-13.13); T4 (Thyroxine) 9.1 ug/dl (5.53-11.0); Triiodothryronine (T3) Uptake 31 % (23.5-40.5)
[2022-11-30 09:58] LABS: Thyroid Stimulating Hormone 1.55 uIU/mL (0.465-4.68)
== END ==
PROVIDERS: PCP Nurse Practitioner Family; Visit Provider Nurse Practitioner Family
DX: R07.9 Chest pain, unspecified (principal)
CPT/HCPCS: 36415; 80053; 80061; 84436; 84443; 84479; 85025

== ENCOUNTER → 2022-12-01 14:40 | Outpatient (CLI) | payer OTHER, SELFPAY | PROVIDERS: PCP Family Medicine; Visit Provider Family Medicine | DX: J02.9 Acute pharyngitis, unspecified (principal) | CPT/HCPCS: 87070; 87077 ==

== ENCOUNTER → 2022-12-03 11:23 | Outpatient (CLI) | payer OTHER, SELFPAY ==
--- NOTE | 2022-12-03 | CA_ITS ---
APPROVED REPORT Exam: Exercise Treadmill Technologist: Cynthia Cordova, Ht: 5 ft 6 in Wt: 167 lbs BSA: 1.85 m2 HR: 72 bpm BP: 106/67 mmHg Rhythm: SR Medical History Medications: Omeprazole,,,,, Diclofenac Sodium,,,,, Cardiac Risk Factors: Smoking Stress Test Details Test: Meka HR Resting HR: 85 bpm Max Heart Rate (APMHR): 182.339515 bpm Max HR Achieved: 162 bpm Target HR (85% APMHR): 154.325267 bpm % of APMHR: 89.01 Recovery HR: 131 bpm BP Resting BP: 109/66 mmHg Max BP: 147/70 mmHg Recovery BP: 124.0/60.0 mmHg ECG Resting ECG: SR Clinical Exercise duration: 06:48 min Highest Stage Achieved: Exercise capacity: 7.0 METs Stress ECG Conclusion During meka protocol pt experinced SOA with exertion. Lots of motion artifact. Test Summary REST . . . . . . . Sitting REST . . . . . . . Standing REST 07:59 0.0 0.0 85 . 109/ 66 . . Stage 1 01:00 10.0 1.7 112 . . . . Stage 1 02:00 10.0 1.7 116 . . . . Stage 1 03:00 10.0 1.7 124 . 120/ 68 . . Stage 2 01:00 12.0 2.5 130 . . . . Stage 2 02:00 12.0 2.5 142 . . . . Stage 2 03:00 12.0 2.5 146 . 133/ 70 . . Stage 3 00:48 14.0 3.4 159 . . . Stop exercise at 06:48 RECOVERY 01:00 0.0 0.0 130 . 124/ 60 . . RECOVERY 02:00 0.0 0.0 97 . 124/ 60 . . RECOVERY 03:00 0.0 0.0 80 . 147/ 70 . . RECOVERY 04:00 0.0 0.0 91 . 131/ 56 . . RECOVERY 04:08 0.0 0.0 85 . 131/ 56 . . Electronically signed by : Abimael To MD 12/20/2022 09:09:02
--- NOTE | 2022-12-03 12:59 | XR_ITS ---
FINAL REPORT CLINICAL HISTORY: cp, soa, smoker COMPARISON: 09/23/2020 FINDINGS: PA and lateral views of the chest were obtained. The cardiac and mediastinal silhouettes are within normal limits. The lungs are clear. There is no pleural effusion or pneumothorax. No acute osseous abnormality is identified. IMPRESSION: No radiographic evidence of acute cardiac or pulmonary disease. Reviewed, Interpreted and Dictated by Michelle Gong MD Transcribed by Loree Ochoa Authenticated and [facility]
== END ==
PROVIDERS: PCP Nurse Practitioner Family; Visit Provider Physician Assistant
DX: R06.00 Dyspnea, unspecified (principal); R00.2 Palpitations; R07.89 Other chest pain; R06.09 Other forms of dyspnea; R06.83 Snoring; R40.0 Somnolence; R53.83 Other fatigue; Z72.0 Tobacco use
CPT/HCPCS: 71046; 93017; 93306

== ENCOUNTER → 2023-01-06 14:42 | Outpatient (CLI) | payer OTHER, SELFPAY ==
[2023-01-06 16:33] LABS: Ferritin 20.7 ng/ml (6.24-137)
== END ==
PROVIDERS: PCP Family Medicine; Visit Provider Nurse Practitioner Family
DX: E83.10 Disorder of iron metabolism, unspecified (principal); G25.81 Restless legs syndrome
CPT/HCPCS: 36415; 82728

== ENCOUNTER → 2023-01-10 13:39 | Outpatient (CLI) | payer OTHER, SELFPAY | PROVIDERS: PCP Family Medicine; Visit Provider Physician Assistant | DX: G47.30 Sleep apnea, unspecified (principal); R06.83 Snoring; R40.0 Somnolence | CPT/HCPCS: G0399 ==

== ENCOUNTER 2023-05-07 13:23 | Emergency (ER) | payer OTHER, SELFPAY ==
[2023-05-07 13:30] VITALS: BP 95/62; PULSE 86; RESP 20; TEMP 37; O2SAT 100; BMI 27.1
[2023-05-07 13:40] LABS: Microscopic, Urine URINE MICROSCOPIC (MICROSCOPIC)
[2023-05-07 13:50] LABS: Appearance,Urine CLEAR (Clear); Blood, Urine 3+ (Negative); Color,Urine YELLOW (Yellow); Glucose,Urine (UA) Negative (Negative); Ketones,Urine Negative (Negative); Leukocyte Esterase,Urine 1+ (Negative); Nitrate,Urine Negative (Negative); Protein,Urine 2+ (Negative); Specific Gravity, Urine >= 1.030 (1.005-1.030)
[2023-05-07 13:56] LABS: Bilirubin,Urine Negative (Negative)
--- NOTE | 2023-05-07 14:00 | EXP.UTC ---
Discharge Plan Disposition Patient Disposition: Home, Self-Care Condition: Good Prescriptions Prescriptions: New cephalexin [cephalexin] 500 mg tablet 500 mg PO BID 7 Days Qty: 14 0RF No Action omeprazole 40 mg capsule,delayed release(DR/EC) 40 mg PO DAILY Qty: 30 2RF escitalopram oxalate [Lexapro] 10 mg tablet 10 mg PO DAILY Qty: 30 3RF diclofenac sodium 50 mg tablet,delayed release (DR/EC) 50 mg PO TID PRN (Reason: pain) Qty: 60 2RF Referrals Follow up/Referrals: Juan Nevarez MD [Primary Care Provider] - See instructions Activity Restrictions/Add. Instructions Additional Instructions/Restrictions: Increase fluids, water and not soda or tea. Can drink cranberry juice or cranberry extract. Wipe front to back Wear cotton underwear Empty bladder after intercourse Start antibiotics immediately and make sure you take the full course although you may start to see improvement over the next 48 hours. You can eat yogurt or take probiotics to decrease diarrhea or yeast infection caused by the antibiotic Be sure to follow-up anytime for new or worsening symptoms in 48 hours for wound urine culture results be sure to let you PCP no recent urine for culture so they can request records and ensure that you have appropriate antibiotic if you are not getting better or getting worse. If symptoms worsen or do not improve return or be seen in the ER. Follow-up with primary care this week. Clinical Impressions Clinical Impression: UTI (urinary tract infection) Qualifiers: Urinary tract infection type: acute cystitis Hematuria presence: without hematuria Qualified Code(s): N30.00 - Acute cystitis without hematuria Instructions Patient Instructions: DI for Urinary Tract Infection (UTI) Discharge ED Provider: Evan ([facility])[place] [facility] [place] General Stated complaint: bladder pain, urgency to urinate Mode of Arrival: Ambulatory Source of Information: Patient Limitations: No Limitations Time Seen by Provider: 05/07/23 14:00 Description of Symptoms (Recalled from Triage Doc. by RN): PATIENT C/O URINARY URGENCY, PAIN WITH URINATION AND DIZZINESS SINCE YESTERDAY EVENING HEENT Symptoms (Recalled from RN notes): Yes Resp Symptoms (Recalled from RN notes): No Skin Symptoms (Recalled from RN notes): No MS Symptoms (Recalled from RN notes): No Functional Status (Recalled from RN notes): WNL History of Present Illness Provider Complaint: 37 yr old female presnets for urinary freq, urgency, burning and dizzy since yesterday Related Data Previous Rx's Medication Instructions Recorded diclofenac sodium 50 mg 50 mg PO TID PRN pain #60 tabs 08/12/22 tablet,delayed release omeprazole 40 mg capsule,delayed 40 mg PO DAILY #30 caps 11/30/22 release escitalopram oxalate 10 mg tablet 10 mg PO DAILY #30 tabs 01/26/23 (Lexapro) cephalexin 500 mg tablet 500 mg PO BID 7 days #14 tabs 05/07/23 Allergies Allergy/AdvReac Type Severity Reaction Status Date / Time morphine [MORPHINE] Allergy Intermediate I-HIVES Verified 01/26/23 13:29 promethazine [From PHENERGAN] Allergy Intermediate PARANOID Verified 01/26/23 13:29 Worker's Comp Is this a Worker's Comp case?: No [facility] Disclaimer: The information contained in this section may have been updated after the patient was seen, as this information can be updated by other users. 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
[2023-05-07 14:04] LABS: Bacteria,Urine 2+ /lpf; Squamous Epithelial Cell,Urine Occasional #/hpf (0-5)
[2023-05-07 14:07] VITALS: BP 95/62; PULSE 86; RESP 20; TEMP 37; O2SAT 100
== END 2023-05-07 14:09 | disposition home or self-care (01) ==
PROVIDERS: Emergency Provider Nurse Practitioner Family; PCP Family Medicine
DX: N39.0 Urinary tract infection, site not specified (principal); B96.4 Proteus (mirabilis) (morganii) as the cause of diseases classified elsewhere; R42 Dizziness and giddiness; F17.210 Nicotine dependence, cigarettes, uncomplicated
CPT/HCPCS: 81001; 87086; 87088; 87186; 99212; 99214; G0463

== ENCOUNTER → 2023-08-10 17:01 | Outpatient (CLI) | payer OTHER, SELFPAY | PROVIDERS: PCP Family Medicine; Visit Provider Nurse Practitioner Family | DX: U07.1 COVID-19 (principal); R09.81 Nasal congestion | CPT/HCPCS: 87635 ==

== ENCOUNTER 2024-01-04 14:19 | Emergency (ER) | payer OTHER, SELFPAY ==
[2024-01-04 14:35] VITALS: BP 119/65; PULSE 105; RESP 20; TEMP 38.3; O2SAT 97; BMI 26.6
--- NOTE | 2024-01-04 14:48 | EXP.UTC ---
Discharge Plan Disposition Patient Disposition: Home, Self-Care Condition: Good Prescriptions Prescriptions: No Action escitalopram oxalate 10 mg tablet 10 mg PO DAILY Referrals Follow up/Referrals: Juan Nevarez MD [Primary Care Provider] - See instructions Activity Restrictions/Add. Instructions Additional Instructions/Restrictions: *Monitor Temp, Over the counter Motrin or Tylenol as directed/as needed Tylenol every 4 hours and Motrin every 6 hours (as long as your family doctor has told you that you can take it) for fever or pain. and straight to ER if unable to lower temp less than 101.0 after medication given *Warm salt water gargles may help to soothe the throat *Throat Lozenges? *Warm fluids like tea with honey may help to soothe the throat? *Sleep elevated *Humidifier/Vaporizer Follow up IMMEDIATELY for new or worsening symptoms or no Noticeable improvement over the next 48-72 hours. 911 for difficulty breathing or swallowing You were tested for today for Upper Respiratory Panel with COVID19 your test result should be back in the next 24hours, you may check your results on the [facility] Portal Clinical Impressions Clinical Impression: Viral syndrome Stand Alone Forms Stand Alone Forms: Work/School Release Instructions Patient Instructions: DI for Viral Syndrome, DI for Fever (Symptom) -- Adult Discharge ED Provider: Yenni Reyes [facility] [place] HPI General Stated complaint: d/v cough chills body aches Mode of Arrival: Ambulatory Source of Information: Patient Limitations: No Limitations Time Seen by Provider: 01/04/24 14:48 Description of Symptoms (Recalled from Triage Doc. by RN): PATIENT C/O BODY ACHES, CHILLS, HOT FLASHES, FATIGUE, DIARRHEA, NAUSEA, VOMITING, AND COUGH SINCE TUESDAY HEENT Symptoms (Recalled from RN notes): No Resp Symptoms (Recalled from RN notes): Yes Skin Symptoms (Recalled from RN notes): No MS Symptoms (Recalled from RN notes): No Functional Status (Recalled from RN notes): WNL History of Present Illness Provider Complaint: Patient states that she started feeling bad on Tuesday with body aches, chills, headache, N/V/D and cough States that she seen PCP yesterday was dx with viral illness and got some cough medication but she was at work and her fever went up 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 she 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 have 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 or one of the viruses going around so she came in requested to be tested Related Data Home Medications Medication Instructions Recorded Confirmed escitalopram oxalate 10 mg tablet 10 mg PO DAILY 01/04/24 01/04/24 Allergies Allergy/AdvReac Type Severity Reaction Status Date / Time morphine [MORPHINE] Allergy Intermediate I-HIVES Verified 01/03/24 10:56 promethazine [From PHENERGAN] Allergy Intermediate PARANOID Verified 01/03/24 10:56 Worker's Comp Is this a Worker's Comp case?: No [facility] Disclaimer: The information contained in this section may have been updated after the patient was seen, as this information can be updated by other users. 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 current occupational exposures/hazards: No caffeine: Yes ROS Obtained: Yes All systems reviewed & no additional complaints except as documented and Yes Systems reviewed as appropriate & no additional complaints except as documented Constitutional Constitutional: Reports system reviewed and no additional complaints, except as documented, Reports as per HPI, Reports body ache, Reports chills, Reports fever(s) and Reports headache(s) ENT Ears, Nose, Mouth, and Throat: Reports system reviewed and no additional complaints, except as documented, Reports as per HPI, Reports headache(s) and Reports nasal congestion Cardiovascular Cardiovascular: Reports system reviewed and no additional complaints, except as documented and Reports as per HPI Respiratory Respiratory: Reports system reviewed and no additional complaints, except as documented, Reports as per HPI and Reports cough Gastrointestinal Gastrointestingal: Reports system reviewed and no additional complaints, except as documented, as per HPI, diarrhea, nausea and vomiting; Denies abdominal pain or cramping Neurologic Neurologic: Reports headache(s) Physical Exam General General appearance: alert and in no apparent distress ENT ENT exam: Present mucous membranes moist Expanded ENT Exam Nose exam: Absent sinus tenderness Throat exam: Present normal inspection Respiratory Respiratory exam: Present normal lung sounds bilaterally; Absent respiratory distress or wheezes Cardiovascular Cardiovascular exam: Present regular rate, normal rhythm and tachycardia Neurological Exam Neurological exam: Present alert, oriented X3 and normal gait Medical Decision Making Agustín Inquiry Pt receiving controlled substance: No Agustín was queried for this patient: No Vital Signs: 01/04/24 14:35 Temperature 101.0 F H Temperature Source Oral Pulse Rate [Left Brachial] 105 H Respiratory Rate 20 Blood Pressure [Left Arm] 119/65 Blood Pressure Mean [Left Arm] 83 Blood Pressure Source [Left Arm] Automatic Cuff Blood Pressure Position [Left Arm] Sitting 02 Sat by Pulse Oximetry 97 Oxygen Delivery Method Room Air Lab Data Lab results reviewed: Yes I reviewed the patient's lab results.
[2024-01-04 14:51] LABS: UTC Influenza A Antigen Negative (Negative)
[2024-01-04 14:52] LABS: UTC Influenza B Antigen Negative (Negative)
[2024-01-04 15:20] VITALS: BP 0/0; PULSE 105; RESP 20; TEMP 37.5; O2SAT 97
[2024-01-04 15:26] LABS: Adenovirus,PCR Not Detected (NotDetected); Coronavirus 19, PCR Not Detected (NotDetected); Coronavirus 229E Not Detected (NotDetected); Coronavirus NL63 Not Detected (NotDetected); Coronavirus OC43 Not Detected (NotDetected); Coronovirus HKU1,PCR Not Detected (NotDetected); Human Metapneumovirus Not Detected (NotDetected); Influenza A, PCR Not Detected (NotDetected); Influenza AH1, 2009 Not Detected (NotDetected); Influenza AH1, PCR Not Detected (NotDetected); Influenza AH3,PCR Not Detected (NotDetected); Influenza B, PCR Not Detected (NotDetected); Parainfluenza 1, PCR Not Detected (NotDetected); Parainfluenza 2, PCR Not Detected (NotDetected); Parainfluenza 3, PCR Not Detected (NotDetected); Parainfluenza 4, PCR Not Detected (NotDetected); Respiratory Syncytial Virus Not Detected (NotDetected)
[2024-01-04 17:04] LABS: Rhinovirus/Enterovirus Detected (NotDetected)
== END 2024-01-04 15:23 | disposition home or self-care (01) ==
PROVIDERS: Emergency Provider Nurse Practitioner; PCP Family Medicine
DX: R51.9 Headache, unspecified (principal); B34.1 Enterovirus infection, unspecified; R11.2 Nausea with vomiting, unspecified; R19.7 Diarrhea, unspecified; R05.9 Cough, unspecified; F17.210 Nicotine dependence, cigarettes, uncomplicated
CPT/HCPCS: 87632; 87635; 87804; 99212; 99213; G0463

== ENCOUNTER 2024-01-07 18:29 | Emergency (ER) | payer OTHER, SELFPAY ==
--- NOTE | 2024-01-07 18:41 | ED_ITS ---
Discharge Plan Disposition Patient Disposition: Home, Self-Care Condition: Good Prescriptions Prescriptions: New benzonatate 100 mg capsule 100 mg PO TIDP PRN (Reason: Cough) Qty: 30 0RF methylprednisolone 4 mg Tablets,Dose Pack 4 mg PO DIRECTED 6 Days Qty: 21 0RF Rx Instructions: Take 1 pack as directed for 6 days azithromycin [Zithromax] 250 mg tablet 250 mg PO UD DOSE PK Qty: 6 0RF Rx Instructions: Take two (2) tablets today, then one (1) tablet days #2 thru #5 No Action escitalopram oxalate 10 mg tablet 10 mg PO DAILY Referrals Follow up/Referrals: Juan Nevarez MD [Primary Care Provider] - See instructions Activity Restrictions/Add. Instructions Additional Instructions/Restrictions: Drink plenty of fluids. Take tylenol or ibuprofen for pain or fever. Take the medications as directed. Follow up with your regular doctor. GO TO THE ER FOR ANY WORSENING SYMPTOMS Clinical Impressions Clinical Impression: Rhinovirus, Bronchitis Stand Alone Forms Stand Alone Forms: Work/School Release Instructions Patient Instructions: DI for Acute Bronchitis Discharge ED Provider: [facility] General Stated complaint: GUERLINE +, SOA, cough, martin Time Seen by Provider: 01/07/24 18:41 History of Present Illness Provider Complaint: She states that she was diagnosed with rhinovirus last tuesday. Since then she has had worsening chest congestion and cough. Related Data Home Medications Medication Instructions Recorded Confirmed escitalopram oxalate 10 mg tablet 10 mg PO DAILY 01/04/24 01/07/24 Previous Rx's Medication Instructions Recorded azithromycin 250 mg tablet 250 mg PO UD DOSE PK #6 tabs 01/07/24 (Zithromax) benzonatate 100 mg capsule 100 mg PO TIDP PRN Cough #30 caps 01/07/24 methylprednisolone 4 mg tablets in 4 mg PO DIRECTED 6 days #21 tabs 01/07/24 a dose pack Allergies Allergy/AdvReac Type Severity Reaction Status Date / Time morphine [MORPHINE] Allergy Intermediate I-HIVES Verified 01/07/24 19:00 promethazine [From PHENERGAN] Allergy Intermediate PARANOID Verified 01/07/24 19:00 [facility] Disclaimer: The information contained in this section may have been updated after the patient was seen, as this information can be updated by other users. 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 current occupational exposures/hazards: No caffeine: Yes ROS Obtained: Yes All systems reviewed & no additional complaints except as documented Constitutional Constitutional: Reports poor appetite Eyes Eyes: Reports system reviewed and no additional complaints, except as documented ENT Ears, Nose, Mouth, and Throat: Reports as per HPI Cardiovascular Cardiovascular: Reports system reviewed and no additional complaints, except as documented and Denies chest pain Respiratory Respiratory: Denies shortness of breath, Reports chest congestion, Reports cough, Denies stridor and Denies wheezing Gastrointestinal Gastrointestingal: Reports system reviewed and no additional complaints, except as documented; Denies abdominal pain, diarrhea or vomiting Musculoskeletal Musculoskeletal: Reports system reviewed and no additional complaints, except as documented and Denies arthralgias Integumentary/Breasts Skin/Breast: Reports system reviewed and no additional complaints, except as documented and Denies rash Neurologic Neurologic: Denies paresthesias Allergic/Immunologic Allergic/Immunologic: Denies wheezing Physical Exam General General appearance: alert and in no apparent distress Eye Eye exam: Present normal appearance, PERRL and EOMI ENT ENT exam: Present mucous membranes moist and normal external ear exam Expanded ENT Exam External ear exam: Present normal external inspection TM/Canal exam: Bilateral TM: erythema and bulging Nose exam: Absent sinus tenderness Nasal speculum exam: Bilateral: normal Mouth exam: Present normal external inspection; Absent drooling Teeth exam: Present normal inspection Throat exam: Present tonsillar erythema and tonsillomegaly Neck Neck exam: Present normal inspection, full ROM and trachea midline; Absent tenderness, lymphadenopathy or thyromegaly Chest Chest inspection: Present normal inspection and symmetric chest wall rise; Absent tenderness or rash Respiratory Respiratory exam: Present normal lung sounds bilaterally; Absent respiratory distress, wheezes, stridor or accessory muscle use Cardiovascular Cardiovascular exam: Present regular rate, normal rhythm and normal heart sounds Abdominal Exam Abdominal exam: Present soft; Absent distention, tenderness, guarding, rebound or rigidity Extremities Exam Extremities exam: Present normal inspection, full ROM and normal capillary refill; Absent tenderness or calf tenderness Back Exam Back exam: Present normal inspection and full ROM; Absent tenderness Neurological Exam Neurological exam: Present alert and oriented X3 Psychiatric Psychiatric exam: Present normal affect and normal mood Skin Skin exam: Present warm, dry, intact and normal color Lymphatic Lymphatic Findings: no adenopathy Medical Decision Making Medical Records Medical records reviewed: No I reviewed the patient's medical records. Agustín Inquiry Pt receiving controlled substance: No Lab Data Lab results reviewed: Yes I reviewed the patient's lab results. Radiology Data #1: Image(s): Chest Image Reviewed: Yes I reviewed the patient's radiology image Preliminary Findings: No Infiltrates Seen
[2024-01-07 18:50] VITALS: BP 102/67; PULSE 110; RESP 22; TEMP 38.1; O2SAT 96; BMI 26.3
--- NOTE | 2024-01-07 18:50 | XR_ITS ---
PROCEDURE INFORMATION: Exam: XR Chest Exam date and time: 01/07/2024 6:53 PM Age: 38 years old Clinical indication: Cough TECHNIQUE: Imaging protocol: Radiologic exam of the chest. Views: 2 views. COMPARISON: CR XR CHEST 2V 12/03/2022 1:00 PM FINDINGS: Lungs: Normal pulmonary expansion. Pulmonary vasculature grossly normal. Bilateral peribronchial thickening suggesting an element of bronchitis. Question mild alveolar opacity in the anterior perihilar distribution on the lateral view although this might be artifactual from overlying density from the arms down positioning. Can not exclude mild perihilar infiltrate or atelectasis although not well demonstrated on the frontal view. Pleural spaces: No pleural effusion. No pneumothorax. Heart/Mediastinum: Heart size normal. No tracheal/mediastinal shift. Bones/joints: No acute osseous abnormalities are identified. Intraperitoneal space: Right upper quadrant surgical clips suggest prior cholecystectomy. IMPRESSION: 1. Possible perihilar atelectasis or infiltrate on the lateral view, although possibly artifactual density from arms down positioning, not well localized on the frontal view. 2. Suspect underlying changes of bronchitis.
[2024-01-07 19:38] VITALS: BP 102/67; PULSE 110; RESP 24; TEMP 38.1; O2SAT 96
== END 2024-01-07 19:38 | disposition home or self-care (01) ==
PROVIDERS: Emergency Provider Nurse Practitioner Family; PCP Family Medicine
DX: J20.8 Acute bronchitis due to other specified organisms (principal); R05.9 Cough, unspecified; F17.210 Nicotine dependence, cigarettes, uncomplicated
CPT/HCPCS: 71046; 99212; 99214; G0463

== ENCOUNTER 2024-07-26 12:20 | Outpatient (CLI) | payer OTHER, SELFPAY ==
--- NOTE | 2024-07-26 12:20 | US_ITS ---
PROCEDURE: US TRANSVAGINAL CLINICAL INDICATION: Heavy Bleeding COMPARISON: No exams were available for comparison FINDINGS: Transvaginal sonographic images of the pelvis were obtained. UTERUS: 11.0cm x 6.6 cmx 5.7 cm anteverted with a combined endometrial thickness of 15.6 mm. There are multiple small nabothian cysts in the cervix. The largest measures 1.1 cm. scar is seen. LEFT OVARY: 2.6 cmx3.1cmx2.3cm with a volume of 9.7ml. There are several small peripheral follicles. The largest measures 1.3 cm RIGHT OVARY: 2.3cmx1.8 cm with a volume of . There are several small follicles. Both ovaries are seen and appear normal. Doppler flow to both ovaries are seen. There is no fluid in the cul-de-sac. IMPRESSION: 1. Anteverted, bulky uterus. The endometrium is thickened and measures 15.6 mm. It has a homogeneous appearance. 2. Both ovaries are seen and appear normal. There are multiple small follicles on each ovary. 3. No fluid in the cul-de-sac. Dictated by: Earl Monet MD 07/26/2024 14:26 Earl Monet MD in OV 07/26/2024 14:26
== END 2024-07-26 23:59 | disposition home or self-care (01) ==
LOC: RAD 12:20
PROVIDERS: PCP Family Medicine; Visit Provider Nurse Practitioner Obstetrics & Gynecology
DX: N92.0 Excessive and frequent menstruation with regular cycle (principal)
CPT/HCPCS: 76830

== ENCOUNTER 2024-07-26 12:55 | Emergency (ER) | payer OTHER, SELFPAY ==
--- NOTE | 2024-07-26 12:57 | XR_ITS ---
PROCEDURE INFORMATION: Exam: XR Right Foot Exam date and time: 07/26/2024 12:56 PM Age: 38 years old Clinical indication: Injury or trauma; Other: Stepped in a hole; Other: Pain TECHNIQUE: Imaging protocol: Radiologic exam of the right foot. Views: 3 or more views. COMPARISON: No relevant prior studies available. FINDINGS: Bones/joints: No acute fracture or malalignment. No worrisome lytic or blastic osseous lesion. No appreciable cortical erosion or periosteal reaction. Joint spaces are preserved. Soft tissues: No soft tissue abnormality. No joint effusion. IMPRESSION: No acute fracture or malaligment.
[2024-07-26 13:25] VITALS: BP 97/55; PULSE 68; RESP 20; TEMP 36.6; O2SAT 98; BMI 24.5
--- NOTE | 2024-07-26 13:40 | ED_ITS ---
Discharge Plan Disposition Patient Disposition: Home, Self-Care Condition: Good Prescriptions Prescriptions: No Action cetirizine [Zyrtec] 10 mg tablet 10 mg PO DAILY Qty: 30 2RF azelastine 137 mcg (0.1 %) spray,non-aerosol 2 spray intranasal BID Qty: 30 2RF Rx Instructions: administer into each nostril escitalopram oxalate 10 mg tablet 10 mg PO DAILY Referrals Follow up/Referrals: Juan Nevarez MD [Primary Care Provider] - See instructions Annmarie Leone DPM [Staff Physician] - See instructions Activity Restrictions/Add. Instructions Additional Instructions/Restrictions: Rest the extremity, apply ice for 15 minutes as tolerated three or four times per day, Wear the elisa wrap for compression, Elevate the extremity as tolerated while you are resting. Take ibuprofen for pain. Follow up with Dr. Leone (podiatry). I put in a referral but you need to call her office and schedule an appointment. Follow up with your regular doctor. GO TO THE ER FOR ANY WORSENING SYMPTOMS Clinical Impressions Clinical Impression: Right foot sprain, Foot pain, right Stand Alone Forms Stand Alone Forms: Work/School Release Instructions Patient Instructions: DI for Foot Pain, DI for Foot Sprain Print Language Print Language: Setswana Discharge ED Provider: Chema Kim [facility] General Stated complaint: AO-07/24/24-Pain in R foot- Mode of Arrival: Ambulatory Source of Information: Patient Limitations: No Limitations Time Seen by Provider: 07/26/24 13:40 Description of Symptoms (Recalled from Triage Doc. by RN): PATIENT STATES SHE STEPPED IN A HOLE 2-3 NIGHTS AGO AND INJURED HER RIGHT FOOT HEENT Symptoms (Recalled from RN notes): No Resp Symptoms (Recalled from RN notes): No Skin Symptoms (Recalled from RN notes): No MS Symptoms (Recalled from RN notes): Yes Functional Status (Recalled from RN notes): WNL Related Data Home Medications ?Medication ?Instructions ?Recorded ?Confirmed escitalopram oxalate 10 mg tablet 10 mg PO DAILY 01/04/24 07/23/24 Previous Rx's ?Medication ?Instructions ?Recorded cetirizine 10 mg tablet (Zyrtec) 10 mg PO DAILY allergy symptoms 05/01/24 #30 tabs azelastine 137 mcg (0.1 %) nasal 2 spray intranasal BID #30 mL 06/13/24 spray Allergies Allergy/AdvReac Type Severity Reaction Status Date / Time morphine [MORPHINE] Allergy Intermediate I-HIVES Verified 07/23/24 10:57 promethazine [From PHENERGAN] Allergy Intermediate PARANOID Verified 07/23/24 10:57 Worker's Comp Is this a Worker's Comp case?: No [facility] Disclaimer: The information contained in this section may have been updated after the patient was seen, as this information can be updated by other users. 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 current occupational exposures/hazards: No caffeine: Yes ROS Obtained: Yes All systems reviewed & no additional complaints except as documented Constitutional Constitutional: Denies chills and Denies fever(s) Eyes Eyes: Denies eye discharge ENT Ears, Nose, Mouth, and Throat: Denies dizziness, Denies otalgia and Denies sore throat Cardiovascular Cardiovascular: Denies chest pain Respiratory Respiratory: Denies shortness of breath, Denies chest congestion, Denies cough, Denies stridor and Denies wheezing Gastrointestinal Gastrointestingal: Denies nausea or vomiting Musculoskeletal Musculoskeletal: Reports as per HPI Integumentary/Breasts Skin/Breast: Denies rash Neurologic Neurologic: Denies dizziness and Denies paresthesias Allergic/Immunologic Allergic/Immunologic: Denies wheezing Physical Exam General General appearance: alert and in no apparent distress Head Head exam: atraumatic, normocephalic and normal inspection Eye Eye exam: Present normal appearance, PERRL and EOMI ENT ENT exam: Present normal exam, normal oropharynx, mucous membranes moist, TM's normal bilaterally and normal external ear exam Neck Neck exam: Present normal inspection, full ROM and trachea midline; Absent meningismus or lymphadenopathy Chest Chest inspection: Present normal inspection and symmetric chest wall rise; Absent tenderness Respiratory Respiratory exam: Present normal lung sounds bilaterally; Absent respiratory distress Cardiovascular Cardiovascular exam: Present regular rate and normal rhythm; Absent JVD Abdominal Exam Abdominal exam: Present soft and normal bowel sounds; Absent distention, tenderness or guarding Extremities Exam Extremities exam: Present normal capillary refill; Absent calf tenderness Expanded Lower Extremity Exam Right: Knee exam: Present normal inspection, full ROM and knee extension intact; Absent tenderness Lower leg exam: Present normal inspection, full ROM and Achilles tendon intact; Absent tenderness or Homans' sign Ankle exam: Present normal inspection and full ROM; Absent tenderness, swelling, abrasion, laceration, ecchymosis, deformity, crepitus, dislocation, erythema, tenderness over talofibular lig or anterior draw sign Foot/toe exam: Present full ROM and tenderness; Absent swelling, abrasion, laceration, ecchymosis, deformity, crepitus, dislocation, erythema, amputation, puncture wound, foreign body, calcaneal tenderness, tenderness at base of 5th metatarsal, nail avulsion or subungual hematoma Neurovascular/Tendon exam: Present normal capillary refill, normal 2-point discrimination and normal fine/light touch; Absent pulse deficit, motor deficit, sensory deficit, tendon deficit, extremity cold to touch or pallor Gait: observed and normal Back Exam Back exam: Present normal inspection; Absent tenderness Neurological Exam Neurological exam: Present alert and oriented X3 Psychiatric Psychiatric exam: Present normal affect and normal mood Skin Skin exam: Present warm, dry, intact and normal color Lymphatic Lymphatic Findings: no adenopathy Medical Decision Making Medical Records Medical records reviewed: No I reviewed the patient's medical records. Screening: Per USPSTF and CDC recommendations, given the prevalence of disease in our region, it is our hospital?s policy to screen for HIV and viral Hepatitis for all patients aged 18 and over and those with ongoing risk factors. Agustín Inquiry Pt receiving controlled substance: No Vital Signs: 07/26/24 13:25 Temperature 97.9 F Temperature Source Oral Pulse Rate [Left Brachial] 68 Respiratory Rate 20 Blood Pressure [Left Arm] 97/55 L Blood Pressure Mean [Left Arm] 69 Blood Pressure Source [Left Arm] Automatic Cuff Blood Pressure Position [Left Arm] Sitting 02 Sat by Pulse Oximetry 98 Oxygen Delivery Method Room Air Orders (Tests/Meds): ORDERS Category Date Time Status Foot XR right minimum 3 views [XR foot RT min 3V] Stat Exams 07/26/24 12:57 Taken Radiology Data #1: Image(s): Foot/Toes Image Reviewed: Yes I reviewed the patient's radiology image and Yes I have reviewed radiologist's interpretation Preliminary Findings: No Fracture Seen Accession No. : [id number] Patient Name / ID : RODOLFO PEDRAZA / [id number] Exam Date : 07/26/2024 12:56:37 ( Final ) Study Comment : Sex / Age : F / [id number] Creator : MASOUD SMITH Dictator : Dial Screw Assembler : Relief Cook : MASOUD SMITH Approver2 : Report Date : 07/26/2024 14:17:17 My Comment : PROCEDURE INFORMATION: Exam: XR Right Foot Exam date and time: 07/26/2024 12:56 PM Age: 38 years old Clinical indication: Injury or trauma; Other: Stepped in a hole; Other: Pain TECHNIQUE: Imaging protocol: Radiologic exam of the right foot. Views: 3 or more views. COMPARISON: No relevant prior studies available. FINDINGS: Bones/joints: No acute fracture or malalignment. No worrisome lytic or blastic osseous lesion. No appreciable cortical erosion or periosteal reaction. Joint spaces are preserved. Soft tissues: No soft tissue abnormality. No joint effusion. IMPRESSION: No acute fracture or malaligment.
[2024-07-26 14:32] VITALS: BP 97/55; PULSE 68; RESP 20; TEMP 36.6; O2SAT 98
== END 2024-07-26 14:33 | disposition home or self-care (01) ==
PROVIDERS: Emergency Provider Nurse Practitioner Family; PCP Family Medicine
DX: S93.601A Unspecified sprain of right foot, initial encounter (principal); X50.0XXA Overexertion from strenuous movement or load, initial encounter
CPT/HCPCS: 73630; 99213; G0381

== ENCOUNTER 2024-07-31 08:32 | Outpatient (POV) | payer OTHER, SELFPAY | END 2024-07-31 23:59 | disposition home or self-care (01) | LOC: SC 08:32 | PROVIDERS: Visit Provider Specialist/Technologist | DX: Z00.00 Encounter for general adult medical examination without abnormal findings (principal) ==

== ENCOUNTER 2024-08-23 12:36 | Outpatient (CLI) | payer OTHER, SELFPAY ==
--- NOTE | 2024-08-23 12:37 | MR_ITS ---
FINAL REPORT CLINICAL HISTORY: r/o acoustic neuroma hearing muffled when someone talks x few months 13 ml prohance COMPARISON: None FINDINGS: Multiplanar MR imaging of the brain was performed without and with contrast including images with and without contrast through the internal auditory canals. The midline structures are intact. There is no evidence of intracranial hemorrhage or mass. No abnormal extra-axial fluid collection is seen. The ventricular size is within normal limits. There is no evidence of shift of the midline structures. The 7 and 8th nerve roots are intact, without evidence of enhancement or mass. 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 This is best seen on image #8 of series 13. No area of abnormal restricted diffusion is identified. No abnormal contrast enhancement is seen. Normal major vessel vascular flow voids are noted. IMPRESSION: No acute intracranial abnormality identified, specifically no MR evidence of an acoustic neuroma is visualized. 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 Reviewed, Interpreted and Dictated by Martir Smith MD Transcribed by Zelda Garcia Authenticated and [facility]
[2024-08-23] MEDS: SODIUM CHLORIDE 0.9% 10ML SYR (RAD ONLY) 10 ML IV (13:43)
[2024-08-23] MEDS: GADOTERIDOL INJ 20ML SYRINGE 13 ML IV (13:43)
== END 2024-08-23 23:59 | disposition home or self-care (01) ==
LOC: RAD 12:37
PROVIDERS: PCP Family Medicine; Visit Provider Nurse Practitioner
DX: H90.3 Sensorineural hearing loss, bilateral (principal)
CPT/HCPCS: 70553; A9576

== ENCOUNTER 2024-10-23 11:13 | Outpatient (CLI) | payer OTHER, SELFPAY ==
[2024-10-23 11:37] VITALS: BMI 24.4
[2024-10-23 12:02] LABS: Basophils % 0.5 % (0.1-2.0); Eosinophils # 0.1 K/mm3 (0.0-0.4); Eosinophils % 1.4 % (0.1-12.0); Hematocrit 38.6 % (37.0-47.0); Hemoglobin 12.9 g/dL (12.2-16.2); Lymphocytes # 2.6 K/mm3 (0.7-4.5); Lymphocytes % 45.1 % (10-50); Mean Corpuscular HGB Conc 33.4 g/dL (31.8-35.4); Mean Corpuscular Hemoglobin 28.7 pg (27.0-31.2); Mean Platelet Volume 11.4 fl (7.4-10.4); Monocytes # 0.5 K/mm3 (0.1-1.0); Monocytes % 8.3 % (1.7-9.3); Neutrophils # 2.6 K/mm3 (1.8-7.8); Neutrophils % 44.5 % (37.0-80.0); Platelet Count 254 K/mm3 (142-424); Red Blood Count 4.49 M/mm3 (4.20-5.40); Red Cell Distribution Width 12.5 % (11.5-17.5); White Blood Count 5.8 K/mm3 (4.8-10.8)
[2024-10-23 12:13] LABS: Albumin Level 4.2 g/dl (3.5-5.0); Chloride 105 mmol/L (98-107); Sodium 136 mmol/L (136-145)
[2024-10-23 12:14] LABS: Potassium 3.6 mmoL/L (3.5-5.1)
[2024-10-23 12:16] LABS: Alanine Aminotransferase 21 U/L (12-78); Albumin/Globulin Ratio 1.8 (1.1-1.8); Alkaline Phosphatase 70 U/L (38-126); Anion Gap 9.6 mEq/L (5-15); Aspartate Amino Transferase 25 U/L (14-36); Bilirubin,Total 0.4 mg/dl (0.2-1.3); Blood Urea Nitrogen 13 mg/dl (7-17); Carbon Dioxide 25 mmol/L (22.0-30.0); Creatinine Clearance Estimated 157 mL/min (50-200); Estimated Glomerular Filt Rate 137 ml/min (>60); GFR (African American) 165 ML/MIN (>60); Globulin 2.4 g/dL (1.3-3.2); Total Protein,Serum 6.6 g/dl (6.3-8.2)
[2024-10-23 12:17] LABS: Calcium 8.7 mg/dl (8.4-10.2); Glucose 88 mg/dl (74-100)
[2024-10-23 12:36] LABS: HCG,Quantitative < 2 mIU/ml (0-5.42)
== END 2024-10-23 23:59 | disposition home or self-care (01) ==
LOC: PREOP 11:14
PROVIDERS: PCP Family Medicine; Visit Provider Nurse Practitioner Obstetrics & Gynecology
DX: N94.6 Dysmenorrhea, unspecified (principal)
CPT/HCPCS: 80053; 84702; 85025

== ENCOUNTER 2024-10-25 06:56 | Day surgery (SDC) | payer OTHER, SELFPAY ==
[2024-10-23 11:42] VITALS: BMI 24.4
[2024-10-25] VITALS (10 sets, daily range): BP systolic 85–122; BP diastolic 41–81; PULSE 53–63; RESP 8–19; TEMP 35.7–36.6; O2SAT 94–100
--- NOTE | 2024-10-25 07:46 | EXP.ANES.CKL ---
[facility] Disclaimer: The information contained in this section may have been updated after the patient was seen, as this information can be updated by other users. Medical History SNHL (sensory-neural hearing loss), asymmetrical right worse than left per Audio Congestion of left ear SNHL (sensorineural hearing loss) moderate predominantly SNHL, bilaterally per Audiometric Nasal congestion Otalgia, left ear Hearing difficulty of left ear Thoracic myofascial strain Lumbar radiculopathy Degenerative joint disease (DJD) of lumbar spine Surgical History History of dilation and curettage History of History of appendectomy History of cholecystectomy Social History Smoking Status: Current every day smoker tobacco type: e-cigarettes second hand exposure: Yes alcohol intake: never substance use type: denies use current occupational status: employed and other Travel in the last 8 weeks: None household members: significant other and children housing: house 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 occupational exposures/hazards: No caffeine: Yes Have you lived/traveled outside [place] in past 30 days?: No Contact w/someone who lives/traveled outside US past 30 days?: No Exposure to someone with infectious disease in past 14 days?: No Do you have a fever (greater than 100.4 F or 38 C)?: No Have you tested positive for COVID-19: No Exposed to someone with COVID-19 in past 14 days?: No Do you have a sore throat?: No Do you have a cough?: No Do you have any weakness?: No Do you have any diarrhea?: No Are you experiencing any unusual bleeding?: No Do you have any muscle aches/pain?: No Do you have any abdominal pain?: No Are you experiencing loss of taste or smell?: No [facility] Anesthesia Checklist Patient Identification Patient Identification: Arm Band and Verbal (Name & ) Structural Data Admitted From: Home Planned Operative Procedure/s: Hysteroscopy, D&C, Novasure ablation Consent for Planned Operative Procedure(s) Verified: Yes Verified Documents: Surgical Consent and History and Physical NPO Status Verified Time NPO: 19:00 Chart Verification Results Verified: CBC, BMP, ECG, Chest Xray and HCG Additional verifications Patient : No Anesthesia Reactions: No Hx Blood Transfusions: No Blood Transfusion Reaction: No Cardiovascular Assessment Heart Sounds: S1 & S2 Pulse Rhythm: Irregular Peripheral Edema: No Airway Assessment Mallampati Score:: Class II C-Spine Mobility Assessed: Yes (FROM demonstrated) TMJ Mobility Assessed: Yes Dentition: Edentulous Neurological Assessment Level of Consciousness: Awake, Alert, Appropriate and Follows Commands Hx Seizures: No Numbness or tingling in extremities: No Anesthesia Plan Anesthesia Risk discussed: Yes Anesthesia Plan: Verified ASA Class: II Anesthesia Type: General
[2024-10-25] MEDS: LACTATED RINGERS 1000ML 1,000 ML 25 ML IV (07:53)
[2024-10-25] MEDS: CEFAZOLIN SODIUM 2 GM in 0.9 % SODIUM CHLORIDE 100 ML IV (07:59)
[2024-10-25] MEDS: ROPIVACAINE 0.5% 30ML VIAL 150 MG (08:10)
--- NOTE | 2024-10-25 08:36 | EXP.ANES.I ---
[facility] Anesthesia Record Part I Anesthesia Record I Intake, IV Amount: 850 Hydration: Adequate Estimated blood loss (mL): 10 Urine output (mL): 15 Blood Products used (#): none Blood Pressure: 85/51 SaO2: 94 Pulse Rate: 55 Airway Patency: Patent Respiratory Rate: 8 Temperature: 96.2 F Patient is:: Drowsy, Oral/Nasal airway (9.[address] upon arrival to PACU.) and Stable Stable to PACU at:: 08:38
--- NOTE | 2024-10-25 08:39 | P.OP_ITS ---
Date of procedure: 10/25/24 Pre-op Diagnosis:: Menorrhagia, uterine hypertrophy Post-op Diagnosis:: Menorrhagia, uterine hypertrophy Procedure performed:: Hysteroscopy, dilation and curettage, NovaSure ablation Surgeon:: Earl Monet MD RUBBER GASKET INSPECTOR TRIMMER:: Sheri Lindsey Anesthesia: LMA Estimated blood loss (mL): 25 Clinical Note:: She is a 39-year-old lady who complains of extremely heavy periods. Ultrasound showed a bulky uterus. After having discussed the risks and benefits we elected to perform a hysteroscopy, D&C and NovaSure ablation. Operative findings:: She had an anteverted bulky uterus. The endometrium sounded to 10 cm. Operative note:: She was taken to the operating room where LMA anesthesia was found be adequate. She was prepped and draped in the normal sterile fashion in the lithotomy position. A weighted speculum was placed in the vagina and the anterior lip of the cervix was grasped with a tenaculum. The cervix was then dilated to approximately 6 mm. I then inserted a hysteroscope into the uterine cavity and the findings were as previously dictated. I then performed a gentle curettage with a medium curette. I then sounded the uterus and determine the length of the uterus. I then inserted the NovaSure device and determine the width of the endometrial cavity. The length of the endometrium was 6.5 cm and the width was 4.[address] aced into the NovaSure device. I then ran the device through its program. I further inspected the endometrial cavity and was found to be completely charred. I then injected 30 cc of 0.5% ropivacaine at the 3:00, 5:00, 7:00, and 9:00 positions of the cervix. She tolerated procedure well and was taken to the recovery room in excellent condition. All sponge and instrument counts were correct. The estimated blood loss was less than 25 cc. Condition: stable Disposition: PACU Specimens:: Endometrial curettings Complications:: None
--- NOTE | 2024-10-25 15:32 | P.PNANES_ITS ---
[facility] Anesthesia Record Part II Anesthesia Record Part II Discharge Time: 09:03 Destination: Surgical Day Care (OP Surgery) PACU nurse assessment reviewed?: Yes Patient Condition:: Good Anesthesia Complications:: None Swallowing reflex intact?: Yes Airway Patency: Patent Cyanosis?: No Blood Pressure: 106/41 SaO2: 100 Respiratory Rate: 10 Pulse Rate: 63 Temperature: 97.2 F Mental Status: Alert & Oriented Pain level:: 0 Nausea and/or vomitting:: None Intake, IV Amount: 850 Hydration: Adequate
== END 2024-10-25 09:34 | disposition home or self-care (01) ==
PROVIDERS: PCP Family Medicine; Visit Provider Nurse Practitioner Obstetrics & Gynecology
PROC: 0U5B8ZZ Destruction of Endometrium, Via Natural or Artificial Opening Endoscopic (ICD-10-PCS; CPT 58563; principal; 2024-10-25 08:30)
DX: N92.0 Excessive and frequent menstruation with regular cycle (principal); N85.2 Hypertrophy of uterus
CPT/HCPCS: 58563; J0690; J1100; J1885; J2250; J2405; J3010; J7120

== ENCOUNTER 2024-11-07 18:10 | Emergency (ER) | payer SELFPAY ==
[2024-11-07 19:30] VITALS: BP 117/86; PULSE 84; RESP 17; TEMP 36.8; O2SAT 99; BMI 24.6
--- NOTE | 2024-11-07 19:47 | ED_ITS ---
Discharge Plan Disposition Patient Disposition: Home, Self-Care Condition: Good Prescriptions Prescriptions: No Action cetirizine [Zyrtec] 10 mg tablet 10 mg PO DAILY Qty: 30 2RF azelastine 137 mcg (0.1 %) spray,non-aerosol 2 spray intranasal BID Qty: 30 2RF Rx Instructions: administer into each nostril escitalopram oxalate 10 mg tablet 10 mg PO DAILY oxycodone-acetaminophen 5-325 mg tablet 1 tab PO Q6H PRN (Reason: pain) Qty: 8 0RF Referrals Follow up/Referrals: Juan Nevarez MD [Primary Care Provider] - See instructions Activity Restrictions/Add. Instructions Additional Instructions/Restrictions: Follow up with your Family Doctor as discussed to go over labs and any abnormalites found Return if needed Straight to ER if any life threatening symptoms Keep wound clean and dry and clean with antibacterial soap and water Clinical Impressions Clinical Impression: Work place accident Instructions Patient Instructions: HIV Antibody, DI for Abrasion Print Language Print Language: Tongan Discharge ED Provider: Yenni Reyes [facility] [place] HPI General Stated complaint: left thumb razor cut at work Mode of Arrival: Ambulatory Source of Information: Patient Limitations: No Limitations Time Seen by Provider: 11/07/24 19:47 Description of Symptoms (Recalled from Triage Doc. 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 it 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 and they had her come here for workers comp blood work Related Data Home Medications ?Medication ?Instructions ?Recorded ?Confirmed escitalopram oxalate 10 mg tablet 10 mg PO DAILY 01/04/24 10/25/24 Previous Rx's ?Medication ?Instructions ?Recorded cetirizine 10 mg tablet (Zyrtec) 10 mg PO DAILY allergy symptoms 05/01/24 #30 tabs azelastine 137 mcg (0.1 %) nasal 2 spray intranasal BID #30 mL 06/13/24 spray oxycodone-acetaminophen 5 mg-325 1 tab PO Q6H PRN pain #8 tabs 10/25/24 mg tablet Allergies Allergy/AdvReac Type Severity Reaction Status Date / Time morphine (MORPHINE) Allergy Intermediate I-HIVES Verified 10/25/24 07:41 promethazine (From PHENERGAN) Allergy Intermediate PARANOID Verified 10/25/24 07:41 Worker's Comp Is this a Worker's Comp case?: No [facility] Disclaimer: The information contained in this section may have been updated after the patient was seen, as this information can be updated by other users. Medical History SNHL (sensory-neural hearing loss), asymmetrical right worse than left per Audio Congestion of left ear SNHL (sensorineural hearing loss) moderate predominantly SNHL, bilaterally per Audiometric Nasal congestion Otalgia, left ear Hearing difficulty of left ear Thoracic myofascial strain Lumbar radiculopathy Degenerative joint disease (DJD) of lumbar spine Surgical History History of dilation and curettage History of History of appendectomy History of cholecystectomy Social History Smoking Status: Current every day smoker tobacco type: e-cigarettes second hand exposure: Yes alcohol intake: never substance use type: denies use current occupational status: employed and other Travel in the last 8 weeks: None household members: significant other and children housing: house 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 occupational 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/hazards: No caffeine: Yes Have you lived/traveled outside US in past 30 days?: No Contact w/someone who lives/traveled outside US past 30 days?: No Exposure to someone with infectious disease in past 14 days?: No Do you have a fever (greater than 100.4 F or 38 C)?: No Have you tested positive for COVID-19: No Exposed to someone with COVID-19 in past 14 days?: No Do you have a sore throat?: No Do you have a cough?: No Do you have any weakness?: No Do you have any diarrhea?: No Are you experiencing any unusual bleeding?: No Do you have any muscle aches/pain?: No Do you have any abdominal pain?: No Are you experiencing loss of taste or smell?: No ROS Obtained: Yes All systems reviewed & no additional complaints except as documented and Yes Systems reviewed as appropriate & no additional complaints except as documented Constitutional Constitutional: Reports system reviewed and no additional complaints, except as documented and Reports as per HPI ENT Ears, Nose, Mouth, and Throat: Reports system reviewed and no additional complaints, except as documented and Reports as per HPI Cardiovascular Cardiovascular: Reports system reviewed and no additional complaints, except as documented and Reports as per HPI Respiratory Respiratory: Reports system reviewed and no additional complaints, except as documented and Reports as per HPI Gastrointestinal Gastrointestingal: Reports system reviewed and no additional complaints, except as documented and as per HPI Musculoskeletal Musculoskeletal: Reports system reviewed and no additional complaints, except as documented and Reports as per HPI Integumentary/Breasts Skin/Breast: Reports system reviewed and no additional complaints, except as documented, Reports as per HPI and Reports other (small cut on left thumb from dirty razor at work) Physical Exam General General appearance: alert and in no apparent distress ENT ENT exam: Present normal exam, normal oropharynx and mucous membranes dry Respiratory Respiratory exam: Present normal lung sounds bilaterally; Absent respiratory distress or wheezes Cardiovascular Cardiovascular exam: Present regular rate, normal rhythm and normal heart sounds Abdominal Exam Abdominal exam: Present soft and normal bowel sounds; Absent distention or tenderness Expanded Upper Extremity Exam Left: Hand L/R back image: 2 1. small superficial cut on left thumb, no redness no swelling no drainage Neurological Exam Neurological exam: Present alert, oriented X3 and normal gait Medical Decision Making Medical Records Screening: Per USPSTF and CDC recommendations, given the prevalence of disease in our region, it is our hospital?s policy to screen for HIV and viral Hepatitis for all patients aged 18 and over and those with ongoing risk factors. Agustín Inquiry Pt receiving controlled substance: No Agustín was queried for this patient: No Vital Signs: 11/07/24 19:30 Temperature 98.3 F Temperature Source Oral Pulse Rate [Left Brachial] 84 Respiratory Rate 17 Blood Pressure [Left Arm] 117/86 Blood Pressure Mean [Left Arm] 96 Blood Pressure Source [Left Arm] Automatic Cuff Blood Pressure Position [Left Arm] Sitting 02 Sat by Pulse Oximetry 99 Oxygen Delivery Method Room Air Lab Data 11/07/24 19:35 Orders (Tests/Meds): ORDERS Category Date Time Status CBC [Complete Blood Count Auto Diff] Stat Lab 11/07/24 19:22 Ordered HIV Combo Stat Lab 11/07/24 19:24 Ordered Hep B Surface Ab, Qual Stat Lab 11/07/24 19:24 Ordered Hepatitis B surface antigen screen [HBsAg Screen] Stat Lab 11/07/24 19:24 Ordered Hepatitis C Ab Qual. W/ RFX Stat Lab 11/07/24 19:24 Ordered Liver Panel Stat Lab 11/07/24 19:22 Ordered PT/PTT Stat Lab 11/07/24 19:22 Ordered Medical Decision Narrative: Patient has superficials cut on her left thumb from dirty razor at work in [employer] box, unsure who the razor may have belonged too so we do not have a source to test for communicable disease Discussed Prophylactic medications since it is unknown who the razor belonged to or if any known communicable disease and patient declined Prophylactic medications at this time and will follow up with PCP if she changes her mind
[2024-11-07 19:54] LABS: Basophils # 0.1 K/mm3 (0-0.2); Basophils % 0.6 % (0.1-2.0); Eosinophils # 0.1 K/mm3 (0.0-0.4); Eosinophils % 1.3 % (0.1-12.0); Hematocrit 40.1 % (37.0-47.0); Hemoglobin 13.5 g/dL (12.2-16.2); Lymphocytes % 24.5 % (10-50); Mean Corpuscular HGB Conc 33.7 g/dL (31.8-35.4); Mean Corpuscular Hemoglobin 28.7 pg (27.0-31.2); Mean Corpuscular Volume 85.3 fl (81-99); Mean Platelet Volume 10.9 fl (7.4-10.4); Monocytes # 0.8 K/mm3 (0.1-1.0); Monocytes % 9.2 % (1.7-9.3); Neutrophils # 5.3 K/mm3 (1.8-7.8); Neutrophils % 63.9 % (37.0-80.0); Platelet Count 294 K/mm3 (142-424); Red Cell Distribution Width 12.6 % (11.5-17.5); White Blood Count 8.3 K/mm3 (4.8-10.8)
[2024-11-07 19:55] VITALS: BP 117/86; PULSE 84; RESP 17; TEMP 36.8; O2SAT 99
[2024-11-07 20:04] LABS: INR 0.83 (0.9-1.1); Prothrombin Time 9.3 seconds (9.2-12.1)
[2024-11-07 21:10] LABS: Albumin Level 4.8 g/dl (3.5-5.0)
[2024-11-07 21:13] LABS: Alanine Aminotransferase 20 U/L (12-78); Alkaline Phosphatase 97 U/L (38-126); Aspartate Amino Transferase 25 U/L (14-36); Bilirubin,Direct 0.1 mg/dl (0.0-0.4); Bilirubin,Indirect 0.3 mg/dL (0.0-0.9); Bilirubin,Total 0.4 mg/dl (0.2-1.3); Bilirubin,Unconjugated 0.3 mg/dL (0.0-1.1); Total Protein,Serum 6.7 g/dl (6.3-8.2)
[2024-11-07 21:55] LABS: HIV Combo NEGATIVE (Negative)
[2024-11-07 22:02] LABS: Hepatitis C Ab Qual. W/ RFX NEGATIVE (Negative)
[2024-11-09 08:23] LABS: Hep B Surface Ab, Qual Reactive (.); Hepatitis B Surface Antigen Negative (Negative)
== END 2024-11-07 19:59 | disposition home or self-care (01) ==
PROVIDERS: Emergency Provider Nurse Practitioner; PCP Family Medicine
DX: S61.012A Laceration without foreign body of left thumb without damage to nail, initial encounter (principal); Y99.0 Civilian activity done for income or pay; Z04.2 Encounter for examination and observation following work accident
CPT/HCPCS: 80076; 85025; 85610; 85730; 86706; 86803; 87340; 87389; 99213; G0381

== ENCOUNTER 2024-12-11 06:42 | Emergency (ER) | payer SELFPAY ==
[2024-12-11 06:47] VITALS: BP 119/74; PULSE 78; RESP 14; TEMP 36.9; O2SAT 100; BMI 24.6
--- NOTE | 2024-12-11 06:52 | PC.NURSE ---
provider at the bedside
[2024-12-11 07:00] VITALS: BP 101/60; PULSE 71; O2SAT 99
--- NOTE | 2024-12-11 07:00 | ED_ITS ---
Discharge Plan Disposition Patient Disposition: Home, Self-Care Prescriptions Prescriptions: New methocarbamol 750 mg tablet 1,500 mg PO TID 5 Days Qty: 30 0RF Referrals Follow up/Referrals: Juan Nevarez MD [Primary Care Provider] - See instructions Activity Restrictions/Add. Instructions Additional Instructions/Restrictions: Follow-up with your family doctor as needed for this visit to the emergency department. Take Tylenol 1000 mg every 6 hours (4 times daily) and ibuprofen 400 mg every 6 hours (4 times daily) as needed with food and water to prevent GI upset and kidney damage. Robaxin can cause you to feel drowsy. Do not drive, operate heavy machinery, or engage in any activity that may make you tired, fall asleep, and because harm to yourself or others while taking this medication. Clinical Impressions Clinical Impression: Hamstring strain Stand Alone Forms Stand Alone Forms: Work/School Release Print Language Print Language: Tamazight Discharge ED Provider: Darryl Brown General Adult HPI General Chief complaint: Fall Stated complaint: AO 12/11, L leg injury Time Seen by Provider: 12/11/24 06:50 Mode of Arrival: Ambulatory Source of Information: Patient Description of Symptoms (Recalled from ER Triage Doc. 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 Pt reports pain to left knee and thigh with burning sensation. Pt ambulatory with slow steady gait to assigned room. History of Present Illness HPI narrative: Please note that above description of symptoms, in this electronic medical record under categorization of recalled from ER triage doctor by RN are reflective of an initial nursing assessment, however, is not reflective of my full history and physical exam that was personally taken and clarified. Consequentially, this preceding description of symptoms, which may include the patient's categorized chief complaint in the EMR, do not reflect my personal clinical impression, and the ultimate description of history of present illness and patient stated complaints should be deferred to this section of the note. Unless stated otherwise or congruent with this section of the note, additional signs, symptoms, or incongruence should be interpreted as inaccurate with my clinical impression. Related Data Previous Rx's ?Medication ?Instructions ?Recorded methocarbamol 750 mg tablet 1,500 mg (2 x 750 mg) PO TID 5 12/11/24 days #30 tabs Allergies Allergy/AdvReac Type Severity Reaction Status Date / Time morphine (MORPHINE) Allergy Intermediate I-HIVES Verified 10/25/24 07:41 promethazine (From PHENERGAN) Allergy Intermediate PARANOID Verified 10/25/24 07:41 [facility] Disclaimer: The information contained in this section may have been updated after the patient was seen, as this information can be updated by other users. Medical History SNHL (sensory-neural hearing loss), asymmetrical right worse than left per Audio Congestion of left ear SNHL (sensorineural hearing loss) moderate predominantly SNHL, bilaterally per Audiometric Nasal congestion Otalgia, left ear Hearing difficulty of left ear Thoracic myofascial strain Lumbar radiculopathy Degenerative joint disease (DJD) of lumbar spine Surgical History History of dilation and curettage History of History of appendectomy History of cholecystectomy Social History Smoking Status: Current every day smoker tobacco type: e-cigarettes second hand exposure: Yes alcohol intake: never substance use type: denies use current occupational status: employed and other Travel in the last 8 weeks: None household members: significant other and children housing: house 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 [employer] current occupational exposures/hazards: No caffeine: Yes Have you lived/traveled outside US in past 30 days?: No Contact w/someone who lives/traveled outside US past 30 days?: No Exposure to someone with infectious disease in past 14 days?: No Do you have a fever (greater than 100.4 F or 38 C)?: No Have you tested positive for COVID-19: No Exposed to someone with COVID-19 in past 14 days?: No Do you have a sore throat?: No Do you have a cough?: No Do you have any weakness?: No Do you have any diarrhea?: No Are you experiencing any unusual bleeding?: No Do you have any muscle aches/pain?: No Do you have any abdominal pain?: No Are you experiencing loss of taste or smell?: No Other Medical History Have you received the Flu Vaccine for this season: Yes Have you received the Pneumonia Vaccine: No ROS Obtained: Yes All systems reviewed & no additional complaints except as documented Physical Exam General General appearance: alert Head Head exam: atraumatic and normocephalic Eye Eye exam: Present normal appearance, PERRL and EOMI Neck Neck exam: Present normal inspection, full ROM and trachea midline Respiratory Respiratory exam: Absent respiratory distress, wheezes, stridor, accessory muscle use or prolonged expiratory phase Cardiovascular Cardiovascular exam: Present other (Pulses equal symmetric in upper and lower extremities) Abdominal Exam Abdominal exam: Present soft; Absent distention, tenderness or pulsatile mass Extremities Exam Extremities exam: Absent edema Neurological Exam Neurological exam: Present alert, oriented X3 and CN II-XII intact; Absent motor sensory deficit Skin Skin exam: Present warm and dry; Absent diaphoresis or erythema Medical Decision Making Medical Records Medical records reviewed: Yes I reviewed the patient's medical records. Screening: Per USPSTF and CDC recommendations, given the prevalence of disease in our region, it is our hospital?s policy to screen for HIV and viral Hepatitis for all patients aged 18 and over and those with ongoing risk factors. Agustín Inquiry Pt receiving controlled substance: No Agustín was queried for this patient: No Vital Signs: 12/11/24 06:47 12/11/24 07:00 12/11/24 07:14 Temperature 98.4 F 98.0 F Temperature Source Oral Pulse Rate 71 74 Pulse Rate [Radial] 78 Respiratory Rate 14 13 Blood Pressure 101/60 L 95/58 L Blood Pressure [Right Arm] 119/74 Blood Pressure Mean [Right Arm] 89 Blood Pressure Source Automatic Cuff Blood Pressure Position Sitting Blood Pressure Position [Right Arm] Sitting 02 Sat by Pulse Oximetry 100 99 Oxygen Delivery Method Room Air Room Air Room Air Orders (Tests/Meds): ED MEDICATIONS Discontinued Medications Generic Name Dose Route Start Last Admin Trade Name Geraldq PRN Reason Stop Dose Admin Acetaminophen 1,000 mg 12/11/24 06:55 12/11/24 07:01 Acetaminophen 500mg Tab PO 12/11/24 06:56 1,000 mg ONCE ONE Administration Ibuprofen 600 mg 12/11/24 06:55 12/11/24 07:01 Ibuprofen 600 Mg Tablet PO 12/11/24 06:56 600 mg ONCE ONE Administration Methocarbamol 1,500 mg 12/11/24 06:55 12/11/24 07:01 Methocarbamol 500mg Tablet PO 12/11/24 06:56 1,500 mg ONCE ONE Administration Medical Decision Narrative: This is a 39-year-old female presenting with left leg pain. Patient states she was walking around 12 AM, midnight, about 6 hours prior to this when she slipped on a puddle. States that 1 leg went forward, 1 leg went back, she had a pulling sensation in the back of her left lower extremity. Able to walk, but having pain especially when flexing at the hip and knee, so came in for further evalu ation. Patient states she is having minimal pain at rest. Has not taken anything for the pain. History obtained the patient. On arrival, very clinically well. Speaking full sentences, jovial, interacting appropriately and in absolutely no distress. Left lower extremity is structurally intact. Pulses and capillary refill intact lower extremity. Left knee structural exam unremarkable. Patient has no tenderness about the quadriceps, but tenderness about the medial aspect of left hamstrings muscle. No evidence of torn or retracted muscle. Range of motion intact at the hip and knee. Patient has maximal tenderness with attempt to fully extend the knee. Tylenol and Motrin were given as well as Robaxin. 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 Think this is likely hamstring sprain versus partial tear of the muscle. Labs also not deemed necessary although they were considered for this including CK etc. Because patient at baseline without signs or symptoms of clinical decompensation, deemed appropriate for discharge. I discussed my clinical impression with patient and answered all questions. At this time, the evidence for any other entities in the differential is insufficient to warrant any further testing or ED observation. This was explained as well. Advisory was given that persistent or worsening symptoms require further evaluation. I confirmed the understanding of this discussion. [employer] disclaimer Much of this encounter note is an electronic ui architect spoken language to printed text. Electronic ui architect of the spoken language may permit errors. Although I have reviewed the note, some errors may still exist. Critical Care Critical Care Time Critical Care Time: No
[2024-12-11] MEDS: METHOCARBAMOL 500MG TABLET 1500 MG PO (07:01)
[2024-12-11] MEDS: ACETAMINOPHEN 500MG TAB 1000 MG PO (07:01)
[2024-12-11] MEDS: IBUPROFEN 600 MG TABLET PO (07:01)
[2024-12-11 07:14] VITALS: BP 95/58; PULSE 74; RESP 13; TEMP 36.7; O2SAT 99
== END 2024-12-11 07:19 | disposition home or self-care (01) ==
PROVIDERS: Emergency Provider Emergency Medicine; PCP Family Medicine
DX: S76.312A Strain of muscle, fascia and tendon of the posterior muscle group at thigh level, left thigh, initial encounter (principal); M25.562 Pain in left knee; M79.605 Pain in left leg; F17.290 Nicotine dependence, other tobacco product, uncomplicated
CPT/HCPCS: 99283